=== PATIENT | female | born 1950 | race Caucasian/White ===

== ENCOUNTER 2017-10-08 19:23 | Inpatient (IN) ==
[2017-10-08] MEDS ORDERED: Isovue-370 500 ML INFUS..BTL IV ONE (20:07)
--- NOTE | 2017-10-08 20:24 | Emergency Department Note ---
Disposition Clinical Impression: Diverticulitis Disposition: Admitted As Inpatient Condition: Good Referrals: Samantha Hussein, [employer] [Primary Care Provider] - Forms: ED Satisfaction Letter, Work/School Release Time of Disposition: 22:23 Abdominal Pain HPI - General Chief Complaint: ED Abdominal Pain Stated Complaint: ABD Pain Time Seen by Provider: 10/08/17 19:41 Source: patient, family Mode of arrival: ambulatory Limitations: no limitations Nursing Notes Reviewed: Yes Vital Signs Reviewed: Yes - History of Present Illness HPI Narrative: 67 yo female with chief complaint of "diverticulitis." States this is her third flair in the past few months. Symptoms started August 03, she was seen at [facility] and diagnosed via xray. She was prescribed 10 days of antibiotics and symptoms resolved for 5 days after antibiotic completion. She had symptom recurrence and was prescribed the same antibiotics for another 10 days by her PCP. Her symptoms again resolved for 5 days after completion of antibiotics until today. Today, she has has ~30 episodes of loose stools with stooling every times she urinates today; no blood or black stools, but she has had dark stools. Fever with Tmax 101.7, at which point she felt "bone deep" chills. She has LLQ pelvis pain that radiates to the right. She has nausea, which she has had since initiating the first round of antibiotics - no diarrhea. She has GI referral scheduled for 10/23. Pain Scale: 6 - Related Data Home Medications Medication Instructions Recorded Confirmed Levothyroxine [Synthroid] 50 mcg PO 0630 08/06/15 10/08/17 Pantoprazole Sodium [Protonix] 40 mg PO DAILY 08/06/15 10/08/17 Previous Rx's Medication Instructions Recorded Aspirin 81 mg PO DAILY #30 tab.chew 08/08/15 Atorvastatin [Lipitor] 40 mg PO HS #60 tablet 08/08/15 Lisinopril [Zestril] 2.5 mg PO BID #30 tablet 08/08/15 Metoprolol [Lopressor] 25 mg PO BID #60 tablet 08/08/15 Allergies Allergy/AdvReac Type Severity Reaction Status Date / Time Penicillins Allergy Rash Verified 10/08/17 22:23 Sulfa (Sulfonamide Allergy Rash Verified 10/08/17 22:23 Antibiotics) codeine AdvReac Vomiting Verified 10/08/17 22:23 All systems ED: reviewed and negative except as stated. Review of Systems: As Per HPI Constitutional: Reports: fever, chills Cardiovascular: Denies: chest pain Respiratory: Denies: dyspnea Gastrointestinal: Reports: abdominal pain, nausea, diarrhea. Denies: vomiting Genitourinary: Denies: dysuria Musculoskeletal: Denies: arthralgia, myalgia Neurological: Reports: headache Abdominal Pain PMH - Past Medical History Medical history: Reports: GERD, peripheral artery disease, thyroid disease Female Surgical History: Reports: cholecystectomy, hysterectomy, other Psychiatric history: Reports: no psych history - Social History Smoking status: Current every day smoker Alcohol use: Reports: none Drug use: Reports: none Physical Exam - General Limitations: no limitations General appearance: alert, in no apparent distress - Head Head exam: atraumatic, normocephalic, normal inspection - Eye Eye exam: Present: normal appearance - ENT ENT exam: mucous membranes moist - Neck Neck exam: Present: normal inspection - Chest Chest inspection: Present: normal inspection - Respiratory Respiratory exam: Present: normal lung sounds bilaterally - Cardiovascular Cardiovascular exam: Present: regular rate, normal rhythm, normal heart sounds - Abdominal Exam Abdominal exam: Present: soft, tenderness, normal bowel sounds. Absent: distention, guarding, rebound, rigidity Abdominal tenderness: Present: LLQ - Extremities Exam Extremities exam: Present: normal inspection - Neurological Exam Neurological exam: Present: alert, oriented X3 - Psychiatric Psychiatric exam: Present: normal affect, normal mood - Skin Skin exam: Present: warm, dry, intact, normal color Course Vital Signs Temperature 100.6 F H 10/08/17 19:45 Pulse Rate 97 10/08/17 19:45 Respiratory Rate 20 10/08/17 19:45 Blood Pressure 129/77 10/08/17 19:45 O2 Sat by Pulse Oximetry 93 10/08/17 19:45 Temperature 100.6 F H 10/08/17 19:45 Pulse Rate 97 10/08/17 19:45 Respiratory Rate 20 10/08/17 19:45 Blood Pressure 129/77 10/08/17 19:45 O2 Sat by Pulse Oximetry 93 10/08/17 19:45 Oxygen Delivery Oxygen Delivery Room Air Abdominal Pain - MDM Narrative Medical decision making narrative: 67 yo female presents with recurrent LLQ pain and diarrhea after failing outpatient antibiotics for diverticulitis twice. Outpatient GI appointment scheduled for 10/23. She had fevers with chills today, Tmax 101.7. CT shows diverticulitis. She will be admitted for IV antibiotics. - Differential Diagnosis Differential Diagnosis: Likely: diverticulitis, gastroenteritis - Lab Data Lab results reviewed: Yes I reviewed the patient's lab results. Result diagrams: 10/08/17 20:21 10/08/17 20:21 Lab Results 10/08/17 10/08/17 10/08/17 Range/Units 20:21 20:21 20:50 WBC 13.3 H (4.3-11.1) K/mcL RBC 4.53 (3.82-4.97) M/mcL Hgb 14.5 (11.5-15.4) g/dL Hct 41.9 (35.3-44.9) % MCV 92.5 (83.0-100.0) fL MCH 32.0 (28.0-33.3) pg MCHC 34.6 (31.6-35.5) g/dL RDW 12.4 (11.5-14.5) % Plt Count 299 (140-400) K/mcL MPV 9.9 (9.4-12.4) fL Immature Gran % 0.3 (0-4) % Seg Neutrophils % 81.9 % Lymphocytes % 7.8 % Monocytes % 8.4 % Eosinophils % 1.2 % Basophils % 0.4 % Neutrophils # 10.9 H (1.6-8.9) K/mcL Lymphocytes # 1.0 (0.6-4.6) K/mcL Monocytes # 1.1 (0.0-1.3) K/mcL Eosinophils # 0.2 (0.0-0.6) K/mcL Basophils # 0.1 (0.0-0.2) K/mcL Sodium 133 L (136-145) mEq/L Potassium 4.3 (3.5-5.1) mEq/L Chloride 105 (98-107) mEq/L Carbon Dioxide 22 L (23-29) mEq/L BUN 13 (8-23) mg/dL Creatinine 0.99 (0.60-1.20) mg/dL Est GFR ( Amer) > 60 (> 60) Est GFR (Non-Af Amer) 56 L (> 60) BUN/Creatinine Ratio 13 (6-26) Glucose 126 H (70-105) mg/dL Calculated Osmolality 278 L (280-300) Lactic Acid 0.8 (0.5-2.2) mmol/L Calcium 9.5 (8.6-10.3) mg/dL Total Bilirubin 0.5 (0.3-1.0) mg/dL AST 14 (13-39) Units/L ALT 11 (7-52) Units/L Alkaline Phosphatase 91 (34-104) Units/L Serum Total Protein 7.5 (6.4-8.9) g/dL Albumin 4.1 (3.5-5.7) g/dL Globulin 3.4 (2.4-3.5) g/dL Albumin/Globulin Ratio 1.2 (1.1-2.2) - Radiology Data Radiology results reviewed: Yes I reviewed the patient's radiology results. Attestation Statement - Attestation Attestation: I examined this patient and my medical decision-making was reviewed with the Resident Physician, Dr. Powers. I agree with the documented findings, disposition and treatment plan as described except to the extent set forth below. Patient is a 59-year-old white female who presents to the emergency room today with recurrent left lower quadrant abdominal pain and diarrhea. Patient has been treated 2 times as an outpatient in the past 25 days for diverticulitis. Each time she is been placed on Cipro and Flagyl feels better for 3-5 days and then has a recurrence of her symptoms. Patient last took antibiotics possibly 5 days ago and has been experiencing rapidly worsening left lower quadrant abdominal pain, frequent loose stools and underlying nausea. I agree with patient's physical exam findings as documented. Vital signs are stable. Lab evaluation urinalysis which showed a mild leukocytosis with left shift and CT scan was consistent for acute sigmoid diverticulitis. Patient was started on IV Zosyn due to consecutive outpatient treatment failures. Patient will be admitted to the hospitalist service for further evaluation.
[2017-10-08 20:32] LABS: Basophils # 0.1 K/mcL (0.0-0.2); Basophils % 0.4 %; Eosinophils # 0.2 K/mcL (0.0-0.6); Eosinophils % 1.2 %; Hematocrit 41.9 % (35.3-44.9); Hemoglobin 14.5 g/dL (11.5-15.4); Immature Granulocytes % 0.3 % (0-4); Lymphocytes % 7.8 %; Mean Corpuscular HGB Conc 34.6 g/dL (31.6-35.5); Mean Corpuscular Volume 92.5 fL (83.0-100.0); Mean Platelet Volume 9.9 fL (9.4-12.4); Monocytes # 1.1 K/mcL (0.0-1.3); Monocytes % 8.4 %; Neutrophils # 10.9 K/mcL (1.6-8.9); Platelet Count 299 K/mcL (140-400); Red Blood Count 4.53 M/mcL (3.82-4.97); Red Cell Distribution Width 12.4 % (11.5-14.5); Segmented Neutrophils % 81.9 %
[2017-10-08] MEDS ORDERED: Ondansetron 4 MG/2 ML VIAL IVP ONE (20:35)
[2017-10-08 20:53] LABS: Alanine Aminotransferase 11 Units/L (7-52); Albumin 4.1 g/dL (3.5-5.7); Albumin/Globulin Ratio 1.2 (1.1-2.2); Alkaline Phosphatase 91 Units/L (34-104); Aspartate Amino Transferase 14 Units/L (13-39); BUN/Creatinine Ratio 13 (6-26); Bilirubin,Total 0.5 mg/dL (0.3-1.0); Blood Urea Nitrogen 13 mg/dL (8-23); Calcium 9.5 mg/dL (8.6-10.3); Carbon Dioxide 22 mEq/L (23-29); Chloride 105 mEq/L (98-107); Globulin 3.4 g/dL (2.4-3.5); Glucose 126 mg/dL (70-105); Osmolality,Calculated 278 (280-300); Potassium 4.3 mEq/L (3.5-5.1); Sodium 133 mEq/L (136-145); Total Protein 7.5 g/dL (6.4-8.9); eGFR For Non-African Americans 56 (> 60)
[2017-10-08 23:15] LABS: Bilirubin,Urine Negative (Negative); Blood,Urine Trace (Negative); Clarity,Urine Clear (Clear); Color,Urine Yellow (Yellow); Glucose,Urine (UA) Normal (Normal); Ketones,Urine Negative (Negative); Leukocyte Esterase,Urine Trace (Negative); Nitrite,Urine Negative (Negative); PH,Urine 6.5 pH Units (5.0-8.0); Protein,Urine Negative (Neg-Trace); Specific Gravity,Urine > 1.030 (1.010-1.025); Urobilinogen,Urine Normal (Normal)
[2017-10-08 23:18] LABS: Bacteria,Urine None Seen per hpf (None-Few); Hyaline Casts,Urine None Seen per lpf (None-Few); RBC,Urine 0-3 per hpf (0-3); Squamous Epithelial Cell,Urine None Seen per lpf (None-Few); WBC,Urine 0-3 per hpf (0-3)
[2017-10-09] MEDS ORDERED: Ondansetron 4 MG/2 ML VIAL IVP PRN (00:24)
--- NOTE | 2017-10-09 00:28 | Internal Med History&Physical ---
Date of Encounter: 10/09/17 Time of Encounter: 23:58 Internal Medicine - H&P: HPI Chief complaint: abdominal pain Admitted From: Home Plans for Post Hospital Care: Home History of present illness: Ms. Jiang is a 67 year old female with a history of hypertension, GERD and hypothyroidism who was evaluated 1 month ago at [place] for LLQ abdominal pain and was diagnosed with acute diverticulitis, prescribed antibiotics for 10 days as an outpatient. The symptoms resolved for 5 days after antibiotic completion. She had symptom recurrence and was prescribed the same antibiotics for another 10 days by her PCP. Her symptoms again resolved for 5 days after completion of antibiotics until today. Now she presents complaining of "mushy" stool, LLQ pain but now has chills and fever with a TMax of 101.7F. She denies noticing martine blood in her stool. She also complains of nausea but did not vomit. On arrival to the ER she had a temperature of 100.6F and the rest of her vitals were within normal limits. A CT scan was done which showed acute sigmoid diverticulitis. Of note, she is to see GI as an outpatient on 10/23 for evaluation. Past Med Surg Social Fam HX - Past Medical History Medical history: GERD, peripheral artery disease, thyroid disease Additional medical history: CAROTID STENOSIS. R BREAST CYST. GANGLION CYST. SNIDER'S NEUROMA Psychiatric history: no psych history - Past Surgical History Surgical History: cholecystectomy, hysterectomy Additional surgical history: BILATERAL CARPAL TUNNEL RELEASES. TUBAL LIGATION. BILATERAL 5TH TOES. GANGLION CYST REMOVED. COLONOSCOPY. HEART CATH-NO STENT. LEFT FOOT. CARATOID SURGERY - Social History Smoking Status: Current every day smoker Smokeless Tobacco Status: No Alcohol use: none Drug use: none - Family History Mother Living Status: Hx Family Cardiac Disorders: Yes (CAD) Father Living Status: Hx Family Cardiac Disorders: Yes (A-fib, HTN) Internal Medicine - H&P: Meds Levothyroxine [Synthroid] 50 mcg PO 0630 08/06/15 [History] Pantoprazole Sodium [Protonix] 40 mg PO DAILY 08/06/15 [History] Aspirin 81 mg PO DAILY #30 tab.chew 08/08/15 [Rx] Atorvastatin [Lipitor] 40 mg PO HS #60 tablet 08/08/15 [Rx] Lisinopril [Zestril] 2.5 mg PO BID #30 tablet 08/08/15 [Rx] Metoprolol [Lopressor] 25 mg PO BID #60 tablet 08/08/15 [Rx] 3 Allergy/AdvReac Type Severity Reaction Status Date / Time Penicillins Allergy Rash Verified 10/08/17 22:23 Sulfa (Sulfonamide Allergy Rash Verified 10/08/17 22:23 Antibiotics) codeine AdvReac Vomiting Verified 10/08/17 22:23 All Systems PM: A 10-system review of systems was performed and is negative for pertinent findings except as documented above in the HPI. - Constitutional Vitals: Temp Pulse Resp BP Pulse Ox 100.6 F H 81 14 107/58 97 10/08/17 19:45 10/08/17 23:18 10/08/17 23:18 10/08/17 23:18 10/08/17 23:18 Exam: Vitals: Reviewed General: Well developed female lying comfortably in bed in no acute distress. Skin: Warm and supple. HEENT: Moist mucous membranes. No conjunctivae pallor. Neck: No lymphadenopathy. No JVD. No carotid bruits. No palpable thyroid. Chest: Normal thoracic expansion. Normal breath sounds. Clear to auscultation. Heart: Normal S1 & S2; rhythmic. No rubs or murmurs. Abdomen: Non-distended, soft and moderately tender to palpation in the LLQ. No peritoneal reaction. Extremities: No clubbing, cyanosis or edema. No calf tenderness. Normal distal pulses. Neurological: Awake, alert and oriented to person, place and time. No focal deficits. Psych: Affect appropriate. Internal Med - H&P Results - Labs CBC & Chem 7: 10/08/17 20:21 10/08/17 20:21 - Assessment and plan (1) Diverticulitis Current Visit: Yes Status: Acute Assessment and plan: From the clinical history, this seems to be her 3rd bout of acute diverticulitis or more seemingly could be an extension of the same process but did not receive the adequate duration or has an anatomic defect causing the prolongation of symptoms and therefore warrants GI follow up for a colonoscopy. She is to be seen as an outpatient in 2 weeks. In this acute setting right now a colonoscopy will not be performed therefore we should continue antibiotics to quell the inflammation and she can be prepped for outpatient evaluation. Continue fluids. NPO status and advance diet as tolerated. Monitor for loose stool and diarrhea given her recent antibiotic courses; if this is to be present consideration should be given to rule out C.diff. (2) Sepsis Current Visit: Yes Status: Acute Assessment and plan: Based on the presence of fever and leukocytosis with a known source being her GI tract. Blood cultures were obtained and will continue PipTazo for now and can subsequently be transitioned to an oral regimen. The choice of PipTazp is based on the fact that she recently had 2 courses of a quinolone with metronidazole in the past month but with symptom recurrences in spite of an adequate duration in therapy. Will be placed on continuous fluids as well. Qualifiers: Sepsis type: sepsis due to unspecified organism Qualified Code(s): A41.9 - Sepsis, unspecified organism (3) Hypertension Current Visit: Yes Status: Chronic Assessment and plan: Resume lisinopril and metoprolol. Qualifiers: Hypertension type: essential hypertension Qualified Code(s): I10 - Essential (primary) hypertension (4) Carotid artery disease Current Visit: No Status: Chronic Assessment and plan: Had 95% left carotid occlusion now s/p endarterectomy 5 years ago. Continue ASA and statin daily. Qualifiers: Carotid artery disease type: occlusion Laterality: left Qualified Code(s) : I65.22 - Occlusion and stenosis of left carotid artery (5) DVT prophylaxis Current Visit: Yes Status: Acute Assessment and plan: SubQ heparin ordered. - Time Spent With Patient Total time spent is greater than 50% in coordination of care (as documented) at patient's floor/unit and/or counseling patient: Greater than 35 minutes
[2017-10-09] MEDS: Ringers Solution, Lactated 1,000 ML IVC SCH ×3 (02:01→21:43)
[2017-10-09] MEDS ORDERED: Piperacillin/Tazobactam 3.375 GM in 0.9 % Sodium Chloride Mini Bag 100 ML IVPB SCH ×2 (04:00)
[2017-10-09] MEDS: *HR* Heparin 5,000 UNIT/ML VIAL SQ SCH ×3 (05:48→21:43)
[2017-10-09 05:53] LABS: Basophils % 0.4 %; Eosinophils # 0.2 K/mcL (0.0-0.6); Eosinophils % 1.9 %; Hematocrit 39.5 % (35.3-44.9); Hemoglobin 13.3 g/dL (11.5-15.4); Immature Granulocytes % 0.5 % (0-4); Lymphocytes # 1.3 K/mcL (0.6-4.6); Lymphocytes % 13.3 %; Mean Corpuscular HGB Conc 33.7 g/dL (31.6-35.5); Mean Platelet Volume 10.3 fL (9.4-12.4); Monocytes # 0.8 K/mcL (0.0-1.3); Monocytes % 8.4 %; Neutrophils # 7.4 K/mcL (1.6-8.9); Platelet Count 256 K/mcL (140-400); Red Blood Count 4.16 M/mcL (3.82-4.97); Red Cell Distribution Width 12.6 % (11.5-14.5); Segmented Neutrophils % 75.5 %
[2017-10-09 07:18] LABS: BUN/Creatinine Ratio 12 (6-26); Blood Urea Nitrogen 12 mg/dL (8-23); Calcium 8.7 mg/dL (8.6-10.3); Carbon Dioxide 22 mEq/L (23-29); Chloride 110 mEq/L (98-107); Glucose 103 mg/dL (70-105); Osmolality,Calculated 270 (280-300); Potassium 4.1 mEq/L (3.5-5.1); Sodium 130 mEq/L (136-145); eGFR For Non-African Americans 53 (> 60)
[2017-10-09] MEDS: Aspirin 81 MG TAB.CHEW PO SCH (09:22)
[2017-10-09] MEDS: Piperacillin/Tazobactam 3.375 GM in 0.9 % Sodium Chloride Mini Bag 100 ML IVPB SCH ×2 (09:23→16:01)
--- NOTE | 2017-10-09 10:59 | Internal Med Progress Note ---
Hospitalist Progress Note - Encounter Date of Encounter: 10/09/17 Time of Encounter: 10:59 - Exam Vitals: Temp Pulse Resp BP Pulse Ox 98.5 F 69 16 102/60 95 10/09/17 06:42 10/09/17 06:42 10/09/17 06:42 10/09/17 06:42 10/09/17 06:42 Exam: General: Patient is alert, no acute distress, oriented x 3 Head: atraumatic, normocephalic, Eye: normal appearance, PERRL, no scleral icterus, no conjunctival injection Neck: normal inspection, trachea midline, full ROM, no carotid bruits Chest: normal inspection, symmetric chest rise, CTAB Cardiovascular: Regular rate and rhythm. s1 and s2 No clicks, rubs, gallops, or murmurs. No pedal edema Abdomen: Abdomen is soft, mild LLQ tenderness, no rebound Musculoskeletal: Spontaneously moving all extremities Skin: warm, dry, intact. Neuro: Alert oriented x 3 normal cranial nerves, no focal deficits Psych: Patient's affect is normal - Assessment and Plan (1) Carotid artery disease Current Visit: Yes Status: Chronic Assessment and Plan: Had 95% left carotid occlusion now s/p endarterectomy 5 years ago. Continue ASA and statin daily. (2) Diverticulitis Current Visit: Yes Status: Acute Assessment and Plan: From the clinical history, this seems to be her 3rd bout of acute diverticulitis or more seemingly could be an extension of the same process but did not receive the adequate duration or has an anatomic defect causing the prolongation of symptoms and therefore warrants GI follow up for a colonoscopy. She has an appointment with GI 10/23 Continue fluids, continue Zosyn Advance diet to clears, continue to monitor Monitor for loose stool and diarrhea given her recent antibiotic courses; if this is to be present consideration should be given to rule out C.diff. (3) Sepsis Current Visit: Yes Status: Acute Assessment and Plan: Based on the presence of fever and leukocytosis with a known source being her GI tract. Blood cultures were obtained and will continue PipTazo for now and can subsequently be transitioned to an oral regimen. The choice of PipTazp is based on the fact that she recently had 2 courses of a quinolone with metronidazole in the past month but with symptom recurrences in spite of an adequate duration in therapy. Will be placed on continuous fluids as well. (4) Hypertension Current Visit: Yes Status: Chronic Assessment and Plan: Continue lisinopril and metoprolol. (5) DVT prophylaxis Current Visit: Yes Status: Acute Assessment and Plan: SubQ heparin ordered. - Time Spent with Patient Total time spent is greater than 50% in coordination of care (as documented) at patient's floor/unit and/or counseling patient: Plan of Care Discussed with: patient Internal Medicine: Result - Labs CBC & Chem 7: 10/09/17 05:14 10/09/17 05:14 Labs: Short CBC 10/09/17 Range/Units 05:14 WBC 9.8 (4.3-11.1) K/mcL Hgb 13.3 (11.5-15.4) g/dL Hct 39.5 (35.3-44.9) % Plt Count 256 (140-400) K/mcL Neutrophils # 7.4 (1.6-8.9) K/mcL BMP 10/09/17 05:14 Sodium 130 L Potassium 4.1 Chloride 110 H Carbon Dioxide 22 L BUN 12 Creatinine 1.04 Glucose 103 Calcium 8.7 Consult Discharge Plan - Plan Referrals: Samantha Hussein, H[employer]RAFTER [Primary Care Provider] - (1) Carotid artery disease Qualifiers: Carotid artery disease type: occlusion Laterality: left Qualified Code(s): I65.22 - Occlusion and stenosis of left carotid artery (3) Sepsis Qualifiers: Sepsis type: sepsis due to unspecified organism Qualified Code(s): A41.9 - Sepsis, unspecified organism (4) Hypertension Qualifiers: Hypertension type: essential hypertension Qualified Code(s): I10 - Essential (primary) hypertension
--- NOTE | 2017-10-09 23:51 | Event Note ---
Date of Encounter: 10/09/17 Time of Encounter: 23:32 Notified by pts. nurse of C. diff toxin lab results which were positive for C. diff. Pt. was treated OP w/PO abx x 10 days with sx resolving after 5 days. Sx recurred and prescribed same abx for 10 additional days by PCP. Sx again resolved after 5 days then recurred. Pt. admitted and placed on IVPB Zosyn. IV Zosyn held for now and PO Vancomycin 125 mg QID ordered to start tonight per C. diff tx recommendations. Contact precautions. Pt. to be monitored closely.
[2017-10-10] MEDS: Vancomycin Oral Soln 125 MG/2.5 ML UDC PO SCH ×5 (01:15→21:06)
[2017-10-10] MEDS: Piperacillin/Tazobactam 3.375 GM in 0.9 % Sodium Chloride Mini Bag 100 ML IVPB SCH ×4 (01:16→23:25)
[2017-10-10] MEDS: *HR* Heparin 5,000 UNIT/ML VIAL SQ SCH ×3 (05:32→21:06)
[2017-10-10 06:43] LABS: Basophils % 0.6 %; Eosinophils # 0.3 K/mcL (0.0-0.6); Eosinophils % 3.7 %; Hematocrit 36.7 % (35.3-44.9); Hemoglobin 12.4 g/dL (11.5-15.4); Immature Granulocytes % 0.3 % (0-4); Lymphocytes # 1.5 K/mcL (0.6-4.6); Lymphocytes % 22.7 %; Mean Corpuscular HGB Conc 33.8 g/dL (31.6-35.5); Mean Corpuscular Volume 94.8 fL (83.0-100.0); Mean Platelet Volume 10.4 fL (9.4-12.4); Monocytes # 0.8 K/mcL (0.0-1.3); Monocytes % 11.3 %; Neutrophils # 4.1 K/mcL (1.6-8.9); Platelet Count 236 K/mcL (140-400); Red Blood Count 3.87 M/mcL (3.82-4.97); Red Cell Distribution Width 12.4 % (11.5-14.5); Segmented Neutrophils % 61.4 %
[2017-10-10 07:20] LABS: BUN/Creatinine Ratio 8 (6-26); Blood Urea Nitrogen 7 mg/dL (8-23); Calcium 8.9 mg/dL (8.6-10.3); Carbon Dioxide 25 mEq/L (23-29); Chloride 109 mEq/L (98-107); Glucose 95 mg/dL (70-105); Osmolality,Calculated 286 (280-300); Potassium 3.9 mEq/L (3.5-5.1); Sodium 139 mEq/L (136-145); eGFR For Non-African Americans 60 (> 60)
[2017-10-10] MEDS: Ringers Solution, Lactated 1,000 ML IVC SCH ×3 (10:04→23:25)
[2017-10-10] MEDS: Aspirin 81 MG TAB.CHEW PO SCH (10:05)
--- NOTE | 2017-10-10 10:51 | Internal Med Progress Note ---
Hospitalist Progress Note - Encounter Date of Encounter: 10/10/17 Time of Encounter: 10:51 - Subjective Interval History: 67-year-old female with coronary artery disease, carotid artery disease was admitted and being managed for sepsis secondary to diverticulitis, she has chronic smoldering, diverticulitis as she has had diverticulitis according to her about 5 times in the past 2 months. She also tested positive for C. difficile She has no new complaints She reports abdomen feels bloated. No distention She continues to have diarrhea she is afebrile - Exam Vitals: Temp Pulse Resp BP Pulse Ox 98 F 67 15 149/77 96 10/10/17 10:44 10/10/17 10:44 10/10/17 10:44 10/10/17 10:44 10/10/17 10:44 Exam: General: Patient is alert, no acute distress, oriented x 3 Head: atraumatic, normocephalic, Eye: normal appearance, PERRL, no scleral icterus, no conjunctival injection Neck: normal inspection, trachea midline, full ROM, no carotid bruits Chest: normal inspection, symmetric chest rise, CTAB Cardiovascular: Regular rate and rhythm. s1 and s2 No clicks, rubs, gallops, or murmurs. No pedal edema Abdomen: Abdomen is soft, mild LLQ tenderness, no rebound, no distention Musculoskeletal: Spontaneously moving all extremities Skin: warm, dry, intact. Neuro: Alert oriented x 3 normal cranial nerves, no focal deficits Psych: Patient's affect is rupinder - Assessment and Plan (1) Carotid artery disease Current Visit: Yes Status: Chronic Assessment and Plan: Had 95% left carotid occlusion now s/p endarterectomy 5 years ago. Continue ASA and statin daily. (2) Diverticulitis Current Visit: Yes Status: Acute Assessment and Plan: From the clinical history, this seems to be her 3rd bout of acute diverticulitis or more seemingly could be an extension of the same process but did not receive the adequate duration or has an anatomic defect causing the prolongation of symptoms and therefore warrants GI follow up for a colonoscopy. She has an appointment with GI 10/23 Continue fluids, continue Zosyn-day 2 Advance diet to full liquid Patient also has C. difficile, continue vancomycin orally (3) Sepsis Current Visit: Yes Status: Acute Assessment and Plan: Based on the presence of fever and leukocytosis with a known source being her GI tract on admission. Blood cultures negative Continue Zosyn-Day 2 Advance diet to full liquids (4) Hypertension Current Visit: Yes Status: Chronic Assessment and Plan: Continue lisinopril and metoprolol. (5) DVT prophylaxis Current Visit: Yes Status: Acute Assessment and Plan: SubQ heparin , continue same (6) C. difficile colitis Current Visit: Yes Status: Acute Assessment and Plan: Continue oral vancomycin-day 1 - Time Spent with Patient Total time spent is greater than 50% in coordination of care (as documented) at patient's floor/unit and/or counseling patient: Plan of Care Discussed with: patient Internal Medicine: Result - Labs CBC & Chem 7: 10/10/17 06:01 10/10/17 06:01 Labs: Short CBC 10/10/17 Range/Units 06:01 WBC 6.7 (4.3-11.1) K/mcL Hgb 12.4 (11.5-15.4) g/dL Hct 36.7 (35.3-44.9) % Plt Count 236 (140-400) K/mcL Neutrophils # 4.1 (1.6-8.9) K/mcL BMP 10/10/17 06:01 Sodium 139 Potassium 3.9 Chloride 109 H Carbon Dioxide 25 BUN 7 L Creatinine 0.93 Glucose 95 Calcium 8.9 Consult Discharge Plan - Plan Referrals: Samantha Hussein, DESIGN CHIEF [Primary Care Provider] - (1) Carotid artery disease Qualifiers: Carotid artery disease type: occlusion Laterality: left Qualified Code(s): I65.22 - Occlusion and stenosis of left carotid artery (3) Sepsis Qualifiers: Sepsis type: sepsis due to unspecified organism Qualified Code(s): A41.9 - Sepsis, unspecified organism (4) Hypertension Qualifiers: Hypertension type: essential hypertension Qualified Code(s): I10 - Essential (primary) hypertension
[2017-10-11] MEDS: *HR* Heparin 5,000 UNIT/ML VIAL SQ SCH ×3 (05:25→19:52)
[2017-10-11] MEDS: Piperacillin/Tazobactam 3.375 GM in 0.9 % Sodium Chloride Mini Bag 100 ML IVPB SCH ×2 (09:13→17:25)
[2017-10-11] MEDS: Vancomycin Oral Soln 125 MG/2.5 ML UDC PO SCH ×4 (09:13→19:47)
[2017-10-11] MEDS: Aspirin 81 MG TAB.CHEW PO SCH (09:13)
--- NOTE | 2017-10-11 10:24 | Internal Med Progress Note ---
Hospitalist Progress Note - Encounter Date of Encounter: 10/11/17 Time of Encounter: 10:24 - Subjective Interval History: 67-year-old female with coronary artery disease, carotid artery disease was admitted and being managed for sepsis secondary to diverticulitis, she has chronic smoldering, diverticulitis as she has had diverticulitis according to her about 5 times in the past 2 months. She also tested positive for C. difficile Diarrhea has resolved since last night Diet was advanced this a.m She denies new complains Will likely discharge patient home a.m if she remains stable - Exam Vitals: Temp Pulse Resp BP Pulse Ox 98.0 F 60 14 129/70 95 10/11/17 06:36 10/11/17 06:36 10/11/17 06:36 10/11/17 06:36 10/11/17 06:36 Exam: General: Patient is alert, no acute distress, oriented x 3 Head: atraumatic, normocephalic, Eye: normal appearance, PERRL, no scleral icterus, no conjunctival injection Neck: normal inspection, trachea midline, full ROM, no carotid bruits Chest: normal inspection, symmetric chest rise, CTAB Cardiovascular: Regular rate and rhythm. s1 and s2 No clicks, rubs, gallops, or murmurs. No pedal edema Abdomen: Abdomen is soft, not tender, no rebound, no distention Musculoskeletal: Spontaneously moving all extremities Skin: warm, dry, intact. Neuro: Alert oriented x 3 normal cranial nerves, no focal deficits Psych: Patient's affect is rupinder - Assessment and Plan (1) Carotid artery disease Current Visit: Yes Status: Chronic Assessment and Plan: Had 95% left carotid occlusion now s/p endarterectomy 5 years ago. Continue ASA and statin daily. (2) Diverticulitis Current Visit: Yes Status: Acute Assessment and Plan: From the clinical history, this seems to be her 3rd bout of acute diverticulitis or more seemingly could be an extension of the same process but did not receive the adequate duration or has an anatomic defect causing the prolongation of symptoms and therefore warrants GI follow up for a colonoscopy. She has an appointment with GI 10/23 DisContinue fluids, continue Zosyn-day 3 She is on a regular diet, continue to monitor Patient also has C. difficile, continue vancomycin orally (3) Sepsis Current Visit: Yes Status: Resolved Assessment and Plan: Based on the presence of fever and leukocytosis with a known source being her GI tract on admission. Blood cultures negative Continue Zosyn-Day 3 (4) Hypertension Current Visit: Yes Status: Chronic Assessment and Plan: Continue lisinopril and metoprolol. (5) DVT prophylaxis Current Visit: Yes Status: Acute Assessment and Plan: SubQ heparin , continue same (6) C. difficile colitis Current Visit: Yes Status: Acute Assessment and Plan: Continue oral vancomycin-day 2 - Time Spent with Patient Total time spent is greater than 50% in coordination of care (as documented) at patient's floor/unit and/or counseling patient: Plan of Care Discussed with: patient Internal Medicine: Result - Labs CBC & Chem 7: 10/10/17 06:01 10/10/17 06:01 Consult Discharge Plan - Plan Referrals: Samantha Hussein CNP [Primary Care Provider] - (1) Carotid artery disease Qualifiers: Carotid artery disease type: occlusion Laterality: left Qualified Code(s): I65.22 - Occlusion and stenosis of left carotid artery (3) Sepsis Qualifiers: Sepsis type: sepsis due to unspecified organism Qualified Code(s): A41.9 - Sepsis, unspecified organism (4) Hypertension Qualifiers: Hypertension type: essential hypertension Qualified Code(s): I10 - Essential (primary) hypertension
[2017-10-12] MEDS: Piperacillin/Tazobactam 3.375 GM in 0.9 % Sodium Chloride Mini Bag 100 ML IVPB SCH ×2 (00:37→09:12)
[2017-10-12] MEDS: Ringers Solution, Lactated 1,000 ML IVC SCH (06:12)
[2017-10-12] MEDS: *HR* Heparin 5,000 UNIT/ML VIAL SQ SCH (06:14)
[2017-10-12 06:53] VITALS: BP 145/71
[2017-10-12 08:17] LABS: Basophils # 0.1 K/mcL (0.0-0.2); Basophils % 0.8 %; Eosinophils # 0.4 K/mcL (0.0-0.6); Eosinophils % 5.6 %; Hemoglobin 12.3 g/dL (11.5-15.4); Immature Granulocytes % 0.2 % (0-4); Lymphocytes # 1.6 K/mcL (0.6-4.6); Lymphocytes % 24.6 %; Mean Corpuscular HGB Conc 34.2 g/dL (31.6-35.5); Mean Corpuscular Hemoglobin 31.5 pg (28.0-33.3); Mean Corpuscular Volume 92.1 fL (83.0-100.0); Mean Platelet Volume 10.6 fL (9.4-12.4); Monocytes # 0.5 K/mcL (0.0-1.3); Monocytes % 8.2 %; Platelet Count 252 K/mcL (140-400); Red Blood Count 3.91 M/mcL (3.82-4.97); Red Cell Distribution Width 12.2 % (11.5-14.5); Segmented Neutrophils % 60.6 %
[2017-10-12 08:37] LABS: BUN/Creatinine Ratio 8 (6-26); Blood Urea Nitrogen 8 mg/dL (8-23); Calcium 9.2 mg/dL (8.6-10.3); Carbon Dioxide 26 mEq/L (23-29); Chloride 108 mEq/L (98-107); Glucose 92 mg/dL (70-105); Osmolality,Calculated 290 (280-300); Potassium 3.9 mEq/L (3.5-5.1); Sodium 141 mEq/L (136-145); eGFR For Non-African Americans 53 (> 60)
[2017-10-12] MEDS: Aspirin 81 MG TAB.CHEW PO SCH (09:13)
[2017-10-12] MEDS: Vancomycin Oral Soln 125 MG/2.5 ML UDC PO SCH (09:14)
--- NOTE | 2017-10-12 09:41 | Discharge Summary ---
- NOTES TO OUTPATIENT PROVIDER Notes to Outpatient Provider: Follow up with GI as scheduled, admitted for sepsis secondary to sigmoid diverticulitis and C.diff colitis. Symptoms have resolved, patient is tolerating orally and ambulatory. Discharged home with oral antibiotics Date of Encounter: 10/12/17 Time of Encounter: 09:41 - Discharge Diagnosis (1) Carotid artery disease Priority: Secondary Status: Chronic Qualifiers: Carotid artery disease type: occlusion Laterality: left Qualified Code(s) : I65.22 - Occlusion and stenosis of left carotid artery (2) Diverticulitis Priority: Primary Status: Acute (3) Sepsis Priority: Primary Status: Resolved Qualifiers: Sepsis type: sepsis due to unspecified organism Qualified Code(s): A41.9 - Sepsis, unspecified organism (4) Hypertension Priority: Secondary Status: Chronic Qualifiers: Hypertension type: essential hypertension Qualified Code(s): I10 - Essential (primary) hypertension (5) DVT prophylaxis Priority: Primary Status: Resolved (6) C. difficile colitis Priority: Primary Status: Acute Hospital course: Ms. Jiang is a 67 year old female with CAD,recurrent diverticulitis who was admitted and managed for sepsis secondary to c.diff colitis and sigmoi diverticulitis She was managed with IV and oral antibiotics, IVF hydration She has since made improvement and is ambulatory, tolerating po She is discharged home with oral vanco for 7 more days and augmentin Follow up with GI as earlier scheduled, for out-patient colonoscopy for her recurring diverticulitis Plan of care discussed, verbalized understanding Discharge discussed with: patient, nurse - Time Spent with Patient Total time spent providing and/or coordinating discharge services: Less than 30 minutes - Discharge Medications Prescriptions: Amoxicillin/Clavulanate [Augmentin] 500 mg PO BIDWM #8 tablet Vancomycin Oral Soln [Firvanq] 125 mg PO QID #28 [facility] [place] Home Medications: Levothyroxine [Synthroid] 50 mcg PO 0630 08/06/15 [History] Pantoprazole Sodium [Protonix] 40 mg PO DAILY 08/06/15 [History] Aspirin 81 mg PO DAILY #30 tab.chew 08/08/15 [Rx] Atorvastatin [Lipitor] 40 mg PO HS #60 tablet 08/08/15 [Rx] Lisinopril [Zestril] 2.5 mg PO BID #30 tablet 08/08/15 [Rx] Metoprolol [Lopressor] 25 mg PO BID #60 tablet 08/08/15 [Rx] Amoxicillin/Clavulanate [Augmentin] 500 mg PO BIDWM #8 tablet 10/12/17 [Rx] Vancomycin Oral Soln [Firvanq] 125 mg PO QID #28 [facility] 10/12/17 [Rx] Allergies/Adverse Reactions: 3 Allergy/AdvReac Type Severity Reaction Status Date / Time Penicillins Allergy Rash Verified 10/08/17 22:23 Sulfa (Sulfonamide Allergy Rash Verified 10/08/17 22:23 Antibiotics) codeine AdvReac Vomiting Verified 10/08/17 22:23 Date of admission: 10/09/17 00:21 Primary care physician: Samantha Hussein CNP Discharging clinician: Mj Kruger Anticipated date of discharge: 10/12/17 - Constitutional Vitals: Temp Pulse Resp BP Pulse Ox 98.1 F 55 14 145/71 95 10/12/17 06:52 10/12/17 06:52 10/12/17 06:52 10/12/17 06:52 10/12/17 06:52 General appearance: Present: A&O X 3, pleasant, no acute distress - Head Head exam: Present: atraumatic, normocephalic - Eye Eye exam: Present: PERRL, conjuntiva pink, sclera anicteric Pupils: Present: PERRL - Neck Neck exam general surgery: Present: supple, trachea midline. Absent: lymphadenopathy - Respiratory Respiratory exam: Present: CTAB. Absent: accessory muscle use, rales, rhonchi, wheezes - Cardiovascular Cardiovascular exam: Present: RRR, +S1, +S2. Absent: diastolic murmur, gallop, rubs, systolic murmur - GI/Abdominal GI/Abdominal exam: Present: normal bowel sounds, soft, no peritoneal signs. Absent: distended, tenderness - Extremities Exam Extremities exam: Present: warm, radial pulses palpable and symmetrical. Absent : calf tenderness, cyanotic, pedal edema - Neurological Exam Neurological exam: Present: CN II-XII intact, oriented X3, no focal deficits. Absent: pronater drift, facial droop, speech deficit - Skin Skin exam: Present: dry, intact - Patient Status Disposition: Home, Self-Care Condition: Good Functional capacity at discharge: independent ambulation Overall status at discharge: patient is progressing back to baseline - Discharge Instructions Instructions: Clostridium Difficile Infection (GEN) Follow Up With: Samantha Hussein, FLANGING ROLL OPERATOR [Primary Care Provider] - - Diet and Activity Activity: resume usual activities as tolerated Diet: low salt diet
== END 2017-10-12 11:30 | disposition home or self-care (01) | DRG 872 ==
LOC: 3ANU 19:23 → EMEROOARM 19:23 → SUATTDRO 10-09 00:21 → 3ANU 10-09 00:36
PROVIDERS: ADMIT Internal Medicine; ATTEND Internal Medicine

== ENCOUNTER 2018-09-18 03:51 | Observation (INO) ==
[2018-09-18] MEDS ORDERED: *HR* HYDROmorphone (PF) 1 MG/ML SYRINGE IVP ONE ×2 (04:04→04:40)
--- NOTE | 2018-09-18 04:07 | Emergency Department Note ---
Disposition Clinical Impression: Pain management Calcaneal fracture Qualifiers: Encounter type: initial encounter Calcaneus location: body Fracture type: closed Fracture alignment: displaced Laterality: left Qualified Code(s): S92.012A - Displaced fracture of body of left calcaneus, initial encounter for closed fracture Disposition: Admitted As Inpatient Condition: Fair Time of Disposition: 06:03 Lower Extremity Injury HPI - General Chief Complaint: ED Extremity Injury, Lower Stated Complaint: left ankle injury Time Seen by Provider: 09/18/18 03:54 Source: patient Limitations: no limitations - History of Present Illness HPI Narrative: Patient is a 68-year-old female past medical history of thyroid disease on levothyroxine and high blood pressure presenting to the ED tonight after experiencing a calcaneal fracture after jumping out of the back of a pickup truck today while bailing hay. Patient supposedly landed on her feet hurt a popping sound in her left foot and has been unable to bear weight since. He reports shown from the [facility] ED shows that the patient has a comminuted calcaneal fracture. Patient arrives with a bulky Dominique dressing in place, patient states that the pain is worse than it was when she initially broke the foot. She states she is having some numbness and tingling in her toes but is noted to be neurovascularly intact with capillary refill less than 2 seconds, motor and sensation intact. Patient states she is allergic to penicillin sulfa and codeine. Patient is not noticeably in acute distress due to pain. Patient states she was given a pain medication earlier while at [facility] where she initially had workup and management for this injury. The patient was unable to fill a prescription for her pain medication as all the pharmacies are closed in [place] where she lives. The patient is now presenting here for pain management. Patient has an appointment today with Dr. Kaplan at [facility] for follow-up. - Related Data Home Medications Medication Instructions Recorded Confirmed Levothyroxine [Synthroid] 50 mcg PO 0630 08/06/15 09/17/18 Previous Rx's Medication Instructions Recorded Aspirin 81 mg PO DAILY #30 tab.chew 08/08/15 Atorvastatin [Lipitor] 40 mg PO HS #60 tablet 08/08/15 Lisinopril [Zestril] 2.5 mg PO BID #30 tablet 06/14/16 Metoprolol [Lopressor] 25 mg PO BID #60 tablet 08/08/15 HYDROcodone/Acet 5/325 mg [[place] 1 tab PO Q4H PRN 3 Days #15 tab 09/18/18 5-325 mg] Allergies Allergy/AdvReac Type Severity Reaction Status Date / Time Penicillins Allergy Rash Verified 09/17/18 22:58 Sulfa (Sulfonamide Allergy Rash Verified 09/17/18 22:58 Antibiotics) codeine AdvReac Vomiting Verified 09/17/18 22:58 Review of Systems: *See History of Present Illness for more detail Cardiovascular: Denies: chest pain Respiratory: Denies: dyspnea Gastrointestinal: Denies: abdominal pain, nausea, vomiting Musculoskeletal: Patient admits to left lower extremity pain. Denies: back pain, neck pain Neurological: Denies: headache, weakness, lightheadedness/dizziness, numbness, paresthesias All systems ED: reviewed and negative except as stated. 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 She is otherwise alert and oriented, engaged conversation answering questions appropriately. Neuro: GCS 15, no overt focal neurological deficits Head: Atraumatic, normocephalic Eyes: Pupils equal, round and reactive to light, no scleral icterus, no conjunctival injection Neck: Trachea midline without deviation. Anterior neck is supple without swelling. *Chest: Symmetric chest wall rise *Heart: Cardiac rhythm and rate are regular with S1 and S2 , no S3 or S4 appreciated, no murmurs, gallops, rubs, or clicks. *Lungs: Lungs are clear to auscultation bilaterally, without accessory muscle us e or prolonged expiratory phase. No wheezes, rhonchi or stridor appreciated. Abdomen: Abdomen is flat, soft to palpation, normal bowel sounds. No abdominal bruit auscultated. Non-distended, non-rigid, no organomegaly, no ascites appreciated. No pulsatile mass, no tenderness or guarding to palpation in all four quadrants, no rebound Extremities: Normal capillary refill without evidence of pedal edema, joint swelling or erythema. Pulses/motor/sensory intact in the distal extremity. Psychiatric exam: Patient displays a normal affect and mood for the environment. No overt signs of hallucination. Integumentary: warm, dry, intact, normal color. No rash, cyanosis, diaphoresis, erythema, or pallor - General Limitations: no limitations General appearance: alert, in distress Course Course Narrative: We will start IV at this time and given 1 mg of Dilaudid for the patient's pain. - Reevaluation(s) Reevaluation #1: On reevaluation patient states that the Dilaudid has worn off and she is again in significant pain. I will order a second dose of 1 mg Dilaudid that this time and place orders for continuous cardiac, pulse oximetry and capnography monitoring with every 15 minute blood pressures to be taken. If no relief is given with second dose of Dilaudid we will use of dissociative ketamine for pain control. The patient verbalizes her understanding and agreement with this plan. Time: 04:43 Reevaluation #2: Patient continues to have pain despite 2 mg of Dilaudid. I will give 25 mg of ketamine for sub-dissociative dose at 0.3 mg/kg We will unwrap the patient's ankle at this time to assure proper splint placement. Time: 05:03 Reevaluation #3: The patient is now resting comfortably in the room after ketamine administration. She is alert to verbal stimuli, she is protecting her airway without difficulty. We will continue cardiac monitoring and when necessary oxygen by nasal cannula as well as pulse oximetry and every 15 minute blood pressures. Patient states that she has no concerns or complaints at this time and is agreeable to admission. We will replace Dominique bulky dressing at this time. Time: 05:42 Vital Signs Temperature 97.4 F L 09/18/18 03:54 Pulse Rate 76 09/18/18 03:54 Respiratory Rate 16 09/18/18 03:54 Blood Pressure 122/70 09/18/18 03:54 O2 Sat by Pulse Oximetry 97 09/18/18 03:54 Temperature 97.4 F L 09/18/18 03:54 Pulse Rate 86 09/18/18 05:16 Respiratory Rate 18 09/18/18 05:16 Blood Pressure 154/74 09/18/18 05:16 O2 Sat by Pulse Oximetry 99 09/18/18 05:16 Oxygen Delivery Oxygen Delivery Room Air Extremity Injury, Lower - MDM Narrative Medical decision making narrative: Patient has received some measure of pain control after 2 mg of Dilaudid and 25 mg of ketamine. We have reapplied a Dominique bulky dressing to the patient's left lower extremity in order to protect the calcaneal fracture. Patient will require admission to the hospitalist for pain control with podiatry consult placed for follow-up. The patient her at bedside verbalized their understanding and agreement with this plan and the patient is hemodynamically stable time of admission. Dr. Thorne accepting admission.
--- NOTE | 2018-09-18 04:09 | Emergency Department Note ---
Disposition Clinical Impression: Pain management Calcaneal fracture Qualifiers: Encounter type: initial encounter Calcaneus location: body Fracture type: closed Fracture alignment: displaced Laterality: left Qualified Code(s): S92.012A - Displaced fracture of body of left calcaneus, initial encounter for closed fracture Disposition: Still a Patient Condition: Fair Time of Disposition: 04:09 General Adult HPI - General Chief complaint: ED Extremity Injury, Lower Stated complaint: left ankle injury Time Seen by Provider: 09/18/18 03:54 Source: patient Limitations: no limitations Nursing Notes Reviewed: Yes Vital Signs Reviewed: Yes - History of Present Illness HPI Narrative: Attestation note: Patient was seen with the emergency medicine resident/nurse practitioner/physician music library assistant/transitional resident/medical student: Dr. Michael Gill. I was present for the significant portions of the performance and interpretation of procedures and EKGs. I have personally performed a face to face evaluation on this patient. I have reviewed and agree with history and physical examination patient management and disposition. Briefly: 69 female seen in outside ER after a fall from pickup truck will [facility] headache sustained a calcaneal fracture was given a prescription however where she lives is no pharmacy open pain is actually worse than when she first broke. She states she feels numbness examination shows the patient is moderate distress but neurovascularly intact toes are pink with cap refill less than 2 seconds. Patient got parenteral Dilaudid for pain control and observation. Disposition pending Pain Scale: 10 - Related Data Home Medications Medication Instructions Recorded Confirmed Levothyroxine [Synthroid] 50 mcg PO 0630 08/06/15 09/17/18 Previous Rx's Medication Instructions Recorded Aspirin 81 mg PO DAILY #30 tab.chew 08/08/15 Atorvastatin [Lipitor] 40 mg PO HS #60 tablet 08/08/15 Lisinopril [Zestril] 2.5 mg PO BID #30 tablet 08/08/15 Metoprolol [Lopressor] 25 mg PO BID #60 tablet 08/08/15 HYDROcodone/Acet 5/325 mg [[place] 1 tab PO Q4H PRN 3 Days #15 tab 09/18/18 5-325 mg] Allergies Allergy/AdvReac Type Severity Reaction Status Date / Time Penicillins Allergy Rash Verified 09/17/18 22:58 Sulfa (Sulfonamide Allergy Rash Verified 09/17/18 22:58 Antibiotics) codeine AdvReac Vomiting Verified 09/17/18 22:58 Past Medical History - Past Medical History Medical history: Reports: GERD, peripheral artery disease, thyroid disease Surgical history: Reports: cholecystectomy, hysterectomy Psychiatric history: Reports: no psych history 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 - Social History Smoking Status: Current every day smoker Smokeless Tobacco Status: No Alcohol use: Reports: none Drug use: Reports: none Physical Exam - General Limitations: no limitations General appearance: alert, in no apparent distress Course Vital Signs Temperature 97.4 F L 09/18/18 03:54 Pulse Rate 76 09/18/18 03:54 Respiratory Rate 16 09/18/18 03:54 Blood Pressure 122/70 09/18/18 03:54 O2 Sat by Pulse Oximetry 97 09/18/18 03:54 Temperature 97.4 F L 09/18/18 03:54 Pulse Rate 76 09/18/18 03:54 Respiratory Rate 16 09/18/18 03:54 Blood Pressure 122/70 09/18/18 03:54 O2 Sat by Pulse Oximetry 97 09/18/18 03:54 Oxygen Delivery Oxygen Delivery Room Air
[2018-09-18] MEDS ORDERED: *HR* Ketamine 500 MG/5 ML MDV IVP ONE (05:35)
[2018-09-18] MEDS ORDERED: Naloxone 0.4 MG/ML INJ IVP PRN (06:29)
[2018-09-18] MEDS ORDERED: Ondansetron 4 MG/2 ML VIAL IVP PRN (06:29)
[2018-09-18] MEDS ORDERED: Acetaminophen 325 MG TABLET PO PRN (06:29)
--- NOTE | 2018-09-18 06:44 | Internal Med History&Physical ---
Date of Encounter: 09/18/18 Time of Encounter: 06:35 Internal Medicine - H&P: HPI Chief complaint: intractable heel pain Admitted From: Emergency Dept Plans for Post Hospital Care: Home History of present illness: Ms. Jiang is a 68 year old female who complains of intractable pain in her heel. She fell off a trailer and sustained a calcaneal fracture earlier tonight. She presented to the ER at [place] where she was diagnosed with a calcaneus fracture. She was given a prescription for pain medication and advice to follow up with podiatry today in the clinic. However, it was late in the evening/medical massage therapist and she was unable to find a pharmacy that was open. She therefore came to [facility] ER for intractable pain and was given Dilaudid and Ketamine. She was therefore admitted to hospitalist service for further pain control and podiatry consultation. Upon my assessment of the patient in the ER, patient is quite somnolent and offers very little history due to somnolence. She is maintaining her airway and responding appropriately upon questioning. However, she drifts off to sleep immediately and provides no history other than the fact that she fell off a trailer. Past Med Surg Social Fam HX - Past Medical History Source: old records reviewed Medical history: GERD, peripheral artery disease, thyroid disease Additional medical history: CAROTID STENOSIS. R BREAST CYST. GANGLION CYST. SNIDER'S NEUROMA Psychiatric history: no psych history - Past Surgical History Surgical History: cholecystectomy, hysterectomy Additional surgical history: BILATERAL CARPAL TUNNEL RELEASES. TUBAL LIGATION. BILATERAL 5TH TOES. GANGLION CYST REMOVED. COLONOSCOPY. HEART CATH-NO STENT. LEFT FOOT. CARATOID SURGERY - Social History Smoking Status: Current every day smoker Smokeless Tobacco Status: No Alcohol use: none Drug use: none - Family History Mother Living Status: Hx Family Cardiac Disorders: Yes (CAD) Father Living Status: Hx Family Cardiac Disorders: Yes (A-fib, HTN) Internal Medicine - H&P: Meds Levothyroxine [Synthroid] 50 mcg PO 0630 08/06/15 [History] Aspirin 81 mg PO DAILY #30 tab.chew 08/08/15 [Rx] Atorvastatin [Lipitor] 40 mg PO HS #60 tablet 08/08/15 [Rx] Lisinopril [Zestril] 2.5 mg PO BID #30 tablet 08/08/15 [Rx] Metoprolol [Lopressor] 25 mg PO BID #60 tablet 08/08/15 [Rx] HYDROcodone/Acet 5/325 mg [[place] 5-325 mg] 1 tab PO Q4H PRN 3 Days #15 tab 09/18/18 [Rx] Allergy/AdvReac Type Severity Reaction Status Date / Time Penicillins Allergy Rash Verified 09/17/18 22:58 Sulfa (Sulfonamide Allergy Rash Verified 09/17/18 22:58 Antibiotics) codeine AdvReac Vomiting Verified 09/17/18 22:58 ROS unobtainable: due to mental status (patient very somnolent) - Constitutional Vitals: Temp Pulse Resp BP Pulse Ox 97.4 F L 86 18 154/74 99 09/18/18 03:54 09/18/18 05:16 09/18/18 05:16 09/18/18 05:16 09/18/18 05:16 General appearance: Present: no acute distress Exam: somnolent, protecting airway, responds to vocal commands but drifts off to sleep right away. - Head Head exam: Present: atraumatic, normal inspection - Eye Eye exam: Present: EOMI, PERRL (pupils ~ 2-3 mm and appropriate and equal). Absent: scleral icterus - ENT ENT exam: Present: mucous membranes dry, normal exam, normal oropharynx - Neck Neck exam general surgery: Present: full ROM, supple, trachea midline. Absent: tenderness, nuchal rigidity, thyromegaly - Respiratory Respiratory exam: Present: CTAB. Absent: chest wall tenderness, rales, respiratory distress, rhonchi, wheezes - Cardiovascular Cardiovascular exam: Present: RRR, +S1, +S2. Absent: diastolic murmur, systolic murmur - GI/Abdominal GI/Abdominal exam: Present: normal bowel sounds, soft. Absent: guarding, hepatomegaly, mass, rebound, splenomegaly, tenderness - Extremities Exam Extremities exam: Present: normal capillary refill, tenderness (left heel), warm, radial pulses palpable and symmetrical. Absent: calf tenderness, pedal edema - Back Exam Back exam: Absent: CVA tenderness (L), CVA tenderness (R) - Neurological Exam Neurological exam: Present: no focal deficits, strengths equal and symetr throughout Additional comments: somnolent; arousable, drifts off to sleep right away - Skin Skin exam: Present: dry, intact, warm - Assessment and Plan (1) Calcaneal fracture Current Visit: Yes Status: Acute Assessment and plan: 1. Consult Podiatry -- discussed with Dr. Kaplan. 2. CT foot and ankle ordered per podiatry request. 3. No more pain medication ordered until patient fully awake. 4. Will order Narcan to be available if necessary for opioid reversal. Qualifiers: Encounter type: subsequent encounter Calcaneus location: body Fracture type: closed Fracture alignment: displaced Laterality: left Qualified Code(s): S92.012D - Displaced fracture of body of left calcaneus, subsequent encounter for fracture with routine healing (2) Hypothyroidism Current Visit: Yes Status: Chronic Assessment and plan: 1. Resume home meds once verified. 2. Will order TSH. Qualifiers: Hypothyroidism type: unspecified Qualified Code(s): E03.9 - Hypothyroidism, unspecified (3) Hypertension Current Visit: Yes Status: Chronic Assessment and plan: 1. Monitor BP. 2. Continue home meds once verified and adjust as necessary. Qualifiers: Hypertension type: essential hypertension Qualified Code(s): I10 - Essential (primary) hypertension (4) DVT prophylaxis Current Visit: Yes Status: Resolved Assessment and plan: 1. Heparin SQ.
[2018-09-18 07:19] LABS: Basophils # 0.1 K/mcL (0.0-0.2); Basophils % 0.5 %; Eosinophils % 0.2 %; Hematocrit 40.2 % (35.3-44.9); Hemoglobin 13.4 g/dL (11.5-15.4); Immature Granulocytes % 0.3 % (0-4); Lymphocytes # 0.9 K/mcL (0.6-4.6); Lymphocytes % 9.4 %; Mean Corpuscular HGB Conc 33.3 g/dL (31.6-35.5); Mean Corpuscular Hemoglobin 32.3 pg (28.0-33.3); Mean Corpuscular Volume 96.9 fL (83.0-100.0); Mean Platelet Volume 10.6 fL (9.4-12.4); Monocytes # 0.5 K/mcL (0.0-1.3); Monocytes % 4.8 %; Platelet Count 221 K/mcL (140-400); Red Blood Count 4.15 M/mcL (3.82-4.97); Red Cell Distribution Width 12.4 % (11.5-14.5); Segmented Neutrophils % 84.8 %; White Blood Count 9.5 K/mcL (4.3-11.1)
[2018-09-18 08:24] LABS: INR 1.1
[2018-09-18 08:31] LABS: Albumin 4.1 g/dL (3.5-5.7); Albumin/Globulin Ratio 1.5 (1.1-2.2); Bilirubin,Total 0.4 mg/dL (0.3-1.0); Calcium 9.5 mg/dL (8.6-10.3); Globulin 2.8 g/dL (2.4-3.5); Magnesium 2.2 mg/dL (1.6-2.6); Potassium 4.6 mEq/L (3.5-5.1); Total Protein 6.9 g/dL (6.4-8.9)
[2018-09-18 08:43] LABS: Thyroid Stimulating Hormone 0.74 mcIU/mL (0.340-5.600)
[2018-09-18] MEDS: 0.9 % Sodium Chloride 1,000 ML IVC SCH ×2 (09:28→19:49)
--- NOTE | 2018-09-18 09:32 | Event Note ---
<Deborah,Eric M - Last Filed: 09/18/18 18:57> Date of Encounter: 09/18/18 Time of Encounter: 09:00 Subjective: Patient seen and examined at bedside this morning patient was significantly somnolent and took vigorous shaking to arouse from deep sleep. However, upon her being aroused patient reported 10 out of 10 foot pain and asked for more pain medications. The patient was given ketamine 25 and Dilaudid last night for pain. I have decreased her pain medication regimen to hydrocodone every 6 hours. She continues to complain of severe pain and has declined outpatient surgery for her calcaneal fracture. Podiatry has examined her and agreed to keep the patient over the weekend for surgery on Friday. Patient has no other complaints at this time, no fevers, chills, nausea or chest pain, shortness of breath. Objective: Gen.: Alert and oriented, somnolent HEENT: Oropharynx clear, mucous membranes moist Neck: Soft, supple, no rigidity CV: Regular rate and rhythm, no murmurs gallops rubs, normal S1-S2 Lungs: Mild rhonchi noticed throughout all lung locke bilaterally, no crackles or wheezes appreciated Abdomen: Soft, nontender, nondistended no guarding Extremities: Dressing C/D/I over left foot, neurovascularly intact, capillary refill less than 2 seconds, sensation and strength intact Neuro: No focal neurological deficits A/P: Calcaneal Fracture: -CT foot: Left foot multiplanar fracture, nondisplaced, no compression deformity, also a nondisplaced cuboid fracture -Podiatry has been consulted: Dr. Kaplan to see patient today, already has O/P clinic appt. scheduled -Patient reports 10/10 pain, however was sound asleep upon examination -already received Dilaudid plus 25mg of Ketamine in the ED -Will give tylenol and 5mg Hydrocode for pain control Acute Kidney Injury: -Cont. IVFs -DARRYL on hold -UA pending -If improved tomorrow, restart DARRYL stop fluids Hypertension: -Metoprolol continued -Lisinopril on hold -Cont statin/ASA -BP stable thus far Hypothyroidism: -TSH normal -Restart Levothyroxine DVT Prophylaxis: -Heparin SubQ <Susan Simpson M - Last Filed: 09/18/18 19:25> Date of Encounter: 09/18/18 I examined this patient and my medical decision-making was reviewed with the Resident Physician Dr Cabrera. I agree with the documented findings, disposition and treatment plan as described except to the extent set forth below. Ms Jiang is being observed for calcaneal fracture and intractable pain asleep, comfortable appearing, awakes to name. initailly very comfortable then yelling out stating she needs pain medicaiton now. She denies being drowsy in the ED though she was clearly noted to be, then notes that IV dialudid and ketamine will cause that in anyone. She has an odd affect and throughout conversation appears comfortable. gen- alert, awake,appears stated age eyes- pupils equal round cv- reg rate and rhythm, normal s1,s2, lungs- ctabl, no wheezing, rhonchi or crackles neuro- AAOx3 Calcaneal and cuboid bone fractures- podiatry eval, she refused outpt surgery, will need to be here until friday for or, pt intractable pain- oral pain meds only, low dose narcotic and will up titrate as needed NIDIA- check UA, IVFs
--- NOTE | 2018-09-18 12:50 | Electrocardiograph Report ---
[place] [facility] Test Date: 2018-09-18 Pat Name: Purnima Jiang Department: [id number] Room: [facility] Gender: F [employer] Farm[employer]: : 1950 Requested By: Adam Chan Order Number: [id number] Reading MD: Luis Carlos Maldonado Measurements Intervals [place] Rate: 68 P: 94 IN: 239 QRS: 40 QRSD: 113 T: 47 QT: 411 QTc: 438 Interpretive Statements Sinus rhythm Atrial premature complex Prolonged IN interval Incomplete right bundle branch block Electronically Signed On 09-18-2018 12:48:13 EDT by Luis Carlos Maldonado
[2018-09-18] MEDS: *HR* HYDROcodone/Acet 5/325 mg TABLET PO PRN ×2 (13:13→19:49)
--- NOTE | 2018-09-18 14:44 | Podiatry Consult Note ---
Date of Encounter: 09/18/18 Time of Encounter: 14:43 Assessment and Plan (1) Calcaneal fracture Current visit: Yes Status: Acute Assessment: Left calcaneal fracture No fracture blisters noted Ecchymosis noted to medial and lateral calcaneous CFT <3 seconds Plan: Recommend increasing frequency of pain medication to every 4 hours as patients pain is uncontrolled Posterior splint placed to LLE, see below Discussed with patient need for surgical intervention, patient agreeable, Recommended this be done as an outpatient procedure per Dr. Ta. Patient states her pain is unbearable and she would rather complete surgery while in hospital. Will plan for OR Friday evening, notified patient of plan. Patient agreeable Will plan for OR Friday evening NPO after breakfast Friday Adaptic placed to areas of ecchymosis. Kerlix, posterior splint, cast padding x 3 and DARRYL wraps x 2 placed to LLE Qualifiers: Encounter type: subsequent encounter Calcaneus location: body Fracture type: closed Fracture alignment: displaced Laterality: left Qualified Code(s): S92.012D - Displaced fracture of body of left calcaneus, subsequent encounter for fracture with routine healing History of Present Illness HPI: Ms. Jiang is a 68 year old female who presented to the ER last evening with complaints of pain from left calcaneal fracture. PMH of PAD, thyroid disease, and carotid stenosis. Patient reports smoking 1 PPD, denies illicit drug use, and denies alcohol abuse. Recently, Ms. Jiang is a 68-year-old female who fell while [place] a yesterday. Patient presented to the ER and [place] at which time podiatry was notified and patient was to be seen in office today. Patient was unable to get pain medication due to no pharmacy being open and was having intractable pain so she returned to ER at which time she was admitted. Left foot and ankle CT upon admission showed K calcaneal fracture multiple planes and nondisplaced cuboid fracture. WBC 9.5. Ecchymosis noted to his medial and lateral calcaneous. No fracture blisters noted, no erythema noted, moderate edema noted 2/4. Discussed with patient that this procedure could be done on an outpatient status. Patient reports pain is excruciating and she is unable to have relief and she would like to wait until Friday to have surgery inpatient. No other questions or concerns at this time. Past Med Surg Social Fam HX - Past Medical History Medical history: GERD, peripheral artery disease, thyroid disease Additional medical history: CAROTID STENOSIS. R BREAST CYST. GANGLION CYST. SNIDER'S NEUROMA Psychiatric history: no psych history - Past Surgical History Surgical History: cholecystectomy, hysterectomy Additional surgical history: BILATERAL CARPAL TUNNEL RELEASES. TUBAL LIGATION. BILATERAL 5TH TOES. GANGLION CYST REMOVED. COLONOSCOPY. HEART CATH-NO STENT. LEFT FOOT. CARATOID SURGERY - Social History Smoking Status: Current every day smoker Smokeless Tobacco Status: No Alcohol use: none Drug use: none - Family History Mother Living Status: Hx Family Cardiac Disorders: Yes (CAD) Father Living Status: Hx Family Cardiac Disorders: Yes (A-fib, HTN) Medications and Allergies Aspirin 81 mg PO DAILY #30 tab.chew 08/08/15 [Rx] Lisinopril [Zestril] 2.5 mg PO BID #30 tablet 08/08/15 [Rx] Metoprolol [Lopressor] 25 mg PO BID #60 tablet 08/08/15 [Rx] Atorvastatin [Lipitor] 10 mg PO HS 09/18/18 [History] HYDROcodone/Acet 5/325 mg [[place] 5-325 mg] 1 tab PO Q4H PRN 3 Days #15 tab 09/18/18 [Rx] Levothyroxine Sodium [Levo-T] 25 mcg PO QAM 09/18/18 [History] Allergy/AdvReac Type Severity Reaction Status Date / Time Penicillins Allergy Rash Verified 09/17/18 22:58 Sulfa (Sulfonamide Allergy Rash Verified 09/17/18 22:58 Antibiotics) codeine AdvReac Vomiting Verified 09/17/18 22:58 All Systems Reviewed: The remainder of the systems were reviewed and are negative - Constitutional Constitutional: no fever(s) - Cardiovascular Cardiovascular: pedal edema, no chest pain, no dyspnea, no leg edema, no leg ulcers - Respiratory Respiratory: no dyspnea - Musculoskeletal Musculoskeletal: no numbness, no tingling Physical Exam - Constitutional Vitals: Temp Pulse Resp BP Pulse Ox 97.8 F 64 16 104/46 94 09/18/18 12:13 09/18/18 12:13 09/18/18 12:13 09/18/18 12:13 09/18/18 12:13 Exam: Constitiutional: Alert and oriented x 3. Well nourished. No acute distress noted Vascular: 2/4 DP/PT bilaterally, CFT <3 sec to all digits, warm to warm from tibia to toes bilaterally Neurologic: Sensation to touch, normal plantar response Dermatologic: Skin W/D/I. Ecchymosis noted to medial and lateral calcaneous. No fracture blisters noted. No erythema noted. Moderate edema noted to lateral calcaneous/malleolus area 2/4. Pain upon palpation. Musculoskeletal: 3/5 muscle strength and normal tone bilaterally. Results - Labs Result Diagrams: 09/18/18 06:50 09/18/18 06:50 Labs: Abnormal lab results Sodium 135 mEq/L (136-145) L 09/18/18 06:50 Creatinine 1.28 mg/dL (0.60-1.20) H 09/18/18 06:50 Est GFR ( Amer) 50 (> 60) L 09/18/18 06:50 Est GFR (Non-Af Amer) 41 (> 60) L 09/18/18 06:50 Glucose 143 mg/dL (70-105) H 09/18/18 06:50 H & H 09/18/18 Range/Units 06:50 Hgb 13.4 (11.5-15.4) g/dL Hct 40.2 (35.3-44.9) % All other labs normal. - Diagnostic results Ankle/Foot CT: report reviewed Consult Discharge Plan - Plan Referrals: Samantha Hussein, MACHINERY RIGGER [Primary Care Provider] -
[2018-09-18 15:01] LABS: Bilirubin,Urine Negative (Negative); Blood,Urine Negative (Negative); Clarity,Urine Clear (Clear); Color,Urine Yellow (Yellow); Glucose,Urine (UA) Normal (Normal); Ketones,Urine Negative (Negative); Leukocyte Esterase,Urine Negative (Negative); Nitrite,Urine Negative (Negative); PH,Urine 5.5 pH Units (5.0-8.0); Protein,Urine Negative (Neg-Trace); Urobilinogen,Urine Normal (Normal)
[2018-09-18] MEDS: *HR* Heparin 5,000 UNIT/ML VIAL SQ SCH (17:42)
[2018-09-18] MEDS: Aspirin 81 MG TAB.CHEW PO SCH (19:49)
[2018-09-18] MEDS ORDERED: Acetaminophen IV 500 MG/50 ML INFUS..BTL IVPB ONE (20:48)
[2018-09-19 01:22] LABS: Hematocrit 36.9 % (35.3-44.9); Hemoglobin 12.1 g/dL (11.5-15.4); Mean Corpuscular HGB Conc 32.8 g/dL (31.6-35.5); Mean Corpuscular Hemoglobin 31.3 pg (28.0-33.3); Mean Corpuscular Volume 95.3 fL (83.0-100.0); Mean Platelet Volume 10.5 fL (9.4-12.4); Platelet Count 211 K/mcL (140-400); Red Blood Count 3.87 M/mcL (3.82-4.97); Red Cell Distribution Width 12.6 % (11.5-14.5); White Blood Count 7.8 K/mcL (4.3-11.1)
[2018-09-19 01:40] LABS: Calcium 8.9 mg/dL (8.6-10.3); Potassium 4.2 mEq/L (3.5-5.1)
[2018-09-19] MEDS: *HR* HYDROcodone/Acet 5/325 mg TABLET PO PRN ×3 (01:55→23:48)
[2018-09-19] MEDS: Acetaminophen IV 500 MG/50 ML INFUS..BTL IVPB SCH ×4 (03:31→22:10)
[2018-09-19] MEDS ORDERED: HYDROcodone BIT/Homatropine 5 MG TABLET PO ONE (06:06)
[2018-09-19] MEDS: *HR* Heparin 5,000 UNIT/ML VIAL SQ SCH ×2 (06:28→17:44)
[2018-09-19] MEDS: Levothyroxine 25 MCG TABLET PO SCH (06:31)
--- NOTE | 2018-09-19 08:42 | Internal Med Progress Note ---
<Susan Simpson - Last Filed: 09/19/18 14:30> Hospitalist Progress Note - Encounter Date of Encounter: 09/19/18 - Exam Vitals: Temp Pulse Resp BP Pulse Ox 98.2 F 73 16 126/78 96 09/19/18 10:00 09/19/18 10:00 09/19/18 10:00 09/19/18 10:00 09/19/18 10:00 - Assessment and Plan (1) Hypertension Current Visit: Yes Status: Chronic (2) DVT prophylaxis Current Visit: Yes Status: Resolved (3) Calcaneal fracture Current Visit: Yes Status: Acute (4) Hypothyroidism Current Visit: Yes Status: Chronic - Time Spent with Patient Total time spent is greater than 50% in coordination of care (as documented) at patient's floor/unit and/or counseling patient: Internal Medicine: Result - Labs CBC & Chem 7: 09/19/18 01:11 09/19/18 01:11 Labs: Short CBC 09/19/18 Range/Units 01:11 WBC 7.8 (4.3-11.1) K/mcL Hgb 12.1 (11.5-15.4) g/dL Hct 36.9 (35.3-44.9) % Plt Count 211 (140-400) K/mcL BMP 09/19/18 01:11 Sodium 135 L Potassium 4.2 Chloride 108 H Carbon Dioxide 23 BUN 25 H Creatinine 1.16 Glucose 109 H Calcium 8.9 Urine 09/18/18 Range/Units 14:53 Urine Color Yellow (Yellow) Urine Clarity Clear (Clear) Urine pH 5.5 (5.0-8.0) pH Units Ur Specific [place] 1.020 (1.010-1.025) Urine Protein Negative (Neg-Trace) mg/dL Urine Glucose (UA) Normal (Normal) mg/dL - ABG Interpretation ABG results: PT/INR, D-dimer PT 12.0 Seconds (9.4-12.1) 09/18/18 06:50 Consult Discharge Plan - Plan Referrals: Samantha Hussein, PRINTING ASSISTANT [Primary Care Provider] - - Attending Attestation I examined this patient and my medical decision-making was reviewed with the Resident Physician Dr Hussein. I agree with the documented findings, disposition and treatment plan as described except to the extent set forth below. Ms Jiang is being observed for calcaneal fracture and intractable pain resting comfortably in bed, having occasional intolerable pain, poor sleep, informed of dose change gen- alert, awake,appears stated age cv- reg rate and rhythm, normal s1,s2, lungs- ctabl, no wheezing, rhonchi or crackles, normal resp effort on room air msk- left leg/foot in soft splint neuro- AAOx3 Calcaneal and cuboid bone fractures- podiatry eval,OR friday, pt eval pending intractable pain- oral pain meds only, low dose narcotic, increse freq and monitor NIDIA-resolved <Aditi Hussein - Last Filed: 09/19/18 17:16> Hospitalist Progress Note - Encounter Date of Encounter: 09/19/18 Time of Encounter: 10:45 - Subjective Interval History: Patient seen examined at bedside she is in no acute distress resting comfortably in bed. She did report continued pain in her foot. Her is at the bedside. She has no other complaints. She denied fever, chills, shortness of breath, chest pain. - Exam Vitals: Temp Pulse Resp BP Pulse Ox 98.5 F 68 16 121/76 99 09/19/18 06:35 09/19/18 06:35 09/19/18 06:35 09/19/18 06:35 09/19/18 06:35 Exam: Gen.: Vitals noted. No acute distress. AAOx3 HEENT: oropharynx clear, Normocephalic, atraumatic Cardiac: RRR, no murmur, +S1/S2 Pulmonary: CTA bilaterally, no wheezes, rales or rhonchi, equal chest expansion Abdomen: soft, nontender, Bowel sounds noted, no guarding MSK: left foot bandaged Extremities: no BLE edema, nontender calf, no cyanosis or clubbing Neuro: A&Ox3, moves all extremities, no focal deficits Psych: Appropriate mood and behavior - Assessment and Plan (1) Calcaneal fracture Current Visit: Yes Status: Acute Assessment and Plan: Calcaneal fracture after falling off trailer -ankle and foot CT showing multiplanar left calcaneal fracture involving the posterior margin, posterior subtalar articulation and plantar fascia origin. No compression deformity or displaced intra-articular involvement. Small nondisplaced dorsal cuboid fracture. -Patient reports pain in foot however is tolerable. Plan -podiatry following and plan to take patient to OR on Friday -continue pain management with Oneco 5 mg Q4H, and Tylenol -PT/OT ordered (2) NIDIA (acute kidney injury) Current Visit: Yes Status: Acute Assessment and Plan: Resolved Acute kidney injury. Patient received IV fluids -likely prerenal in setting of hypovolemia -creatinine 1.16 (1.28 at admission) -baseline creatinine 0.9 to 1.0 -urinalysis unremarkable Plan - continue renal protective strategy including renal dose medications and avoid nephrotoxic agents -monitor serum creatinine and urine output (3) Hypothyroidism Current Visit: Yes Status: Chronic Assessment and Plan: History of hyperthyroidism taking levothyroxine -TSH 0.7 -continue her medication (4) Hypertension Current Visit: Yes Status: Chronic Assessment and Plan: History of hypertension taking metoprolol, lisinopril. -Blood pressure controlled -continue metoprolol. -Continue holding lisinopril due to acute kidney injury. Will resume as able (5) DVT prophylaxis Current Visit: Yes Status: Resolved Assessment and Plan: Heparin SQ. - Time Spent with Patient Total time spent is greater than 50% in coordination of care (as documented) at patient's floor/unit and/or counseling patient: Internal Medicine: Result - Labs CBC & Chem 7: 09/19/18 01:11 09/19/18 01:11 Labs: Short CBC 09/19/18 Range/Units 01:11 WBC 7.8 (4.3-11.1) K/mcL Hgb 12.1 (11.5-15.4) g/dL Hct 36.9 (35.3-44.9) % Plt Count 211 (140-400) K/mcL BMP 09/19/18 01:11 Sodium 135 L Potassium 4.2 Chloride 108 H Carbon Dioxide 23 BUN 25 H Creatinine 1.16 Glucose 109 H Calcium 8.9 Urine 09/18/18 Range/Units 14:53 Urine Color Yellow (Yellow) Urine Clarity Clear (Clear) Urine pH 5.5 (5.0-8.0) pH Units Ur Specific [place] 1.020 (1.010-1.025) Urine Protein Negative (Neg-Trace) mg/dL Urine Glucose (UA) Normal (Normal) mg/dL - ABG Interpretation ABG results: PT/INR, D-dimer PT 12.0 Seconds (9.4-12.1) 09/18/18 06:50 <Susan Simpson - Last Filed: 09/19/18 14:30> (1) Hypertension Qualifiers: Hypertension type: essential hypertension Qualified Code(s): I10 - Essential (primary) hypertension (3) Calcaneal fracture Qualifiers: Encounter type: subsequent encounter Calcaneus location: body Fracture type: closed Fracture alignment: displaced Laterality: left Qualified Code(s): S92.012D - Displaced fracture of body of left calcaneus, subsequent encounter for fracture with routine healing (4) Hypothyroidism Qualifiers: Hypothyroidism type: unspecified Qualified Code(s): E03.9 - Hypothyroidism, unspecified <Aditi Hussein - Last Filed: 09/19/18 17:16> (1) Calcaneal fracture Qualifiers: Encounter type: subsequent encounter Calcaneus location: body Fracture type: closed Fracture alignment: displaced Laterality: left Qualified Code(s): S92.012D - Displaced fracture of body of left calcaneus, subsequent encounter for fracture with routine healing (3) Hypothyroidism Qualifiers: Hypothyroidism type: unspecified Qualified Code(s): E03.9 - Hypothyroidism, unspecified (4) Hypertension Qualifiers: Hypertension type: essential hypertension Qualified Code(s): I10 - Essential (primary) hypertension
[2018-09-19] MEDS: Aspirin 81 MG TAB.CHEW PO SCH (09:54)
[2018-09-19] MEDS ORDERED: *HR* HYDROcodone/Acet 5/325 mg TABLET PO ONE (20:00)
[2018-09-19] MEDS: Melatonin 3 MG TABLET PO PRN (20:09)
[2018-09-20] MEDS: Acetaminophen IV 500 MG/50 ML INFUS..BTL IVPB SCH ×4 (03:58→21:55)
[2018-09-20] MEDS: *HR* HYDROcodone/Acet 5/325 mg TABLET PO PRN ×4 (04:00→23:41)
[2018-09-20] MEDS: *HR* Heparin 5,000 UNIT/ML VIAL SQ SCH ×2 (05:52→17:04)
[2018-09-20] MEDS: Levothyroxine 25 MCG TABLET PO SCH (05:52)
[2018-09-20 07:26] LABS: Calcium 9.5 mg/dL (8.6-10.3); Potassium 4.1 mEq/L (3.5-5.1)
--- NOTE | 2018-09-20 08:06 | Internal Med Progress Note ---
<Aditi Hussein - Last Filed: 09/20/18 14:22> Hospitalist Progress Note - Encounter Date of Encounter: 09/20/18 Time of Encounter: 11:00 - Subjective Interval History: Patient seen examined sitting up in chair no acute distress. She reports that she did not sleep very well last night however her foot was not hurting her. She is looking forward to surgery tomorrow. She denied fever, chills, shortness of breath. Her for still hurts her right now but does tolerable. - Exam Vitals: Temp Pulse Resp BP Pulse Ox 98.0 F 64 17 125/68 98 09/20/18 06:44 09/20/18 06:44 09/20/18 06:44 09/20/18 06:44 09/20/18 06:44 Exam: Gen.: Vitals noted. No acute distress. AAOx3 HEENT: oropharynx clear, Normocephalic, atraumatic Cardiac: RRR, no murmur, +S1/S2 Pulmonary: CTA bilaterally, no wheezes, rales or rhonchi, equal chest expansion Abdomen: soft, nontender, Bowel sounds noted, no guarding MSK: left foot bandaged Extremities: no BLE edema, nontender calf, no cyanosis or clubbing Psych: Appropriate mood and behavior - Assessment and Plan (1) Calcaneal fracture Current Visit: Yes Status: Acute Assessment and Plan: Calcaneal fracture after falling off trailer -ankle and foot CT showing multiplanar left calcaneal fracture involving the posterior margin, posterior subtalar articulation and plantar fascia origin. No compression deformity or displaced intra-articular involvement. Small nondisplaced dorsal cuboid fracture. -Patient reports pain in foot however is tolerable. Plan -podiatry following and plan to take patient to OR on Friday. NPO tomorrow after breakfast. -continue pain management with [place] 5 mg Q4H, and Tylenol -PT/OT ordered (2) Hypertension Current Visit: Yes Status: Chronic Assessment and Plan: History of hypertension taking metoprolol, lisinopril. -Blood pressure controlled -continue metoprolol. -Restart home lisinopril as acute kidney injury has resolved (3) DVT prophylaxis Current Visit: Yes Status: Resolved Assessment and Plan: Heparin SQ. (4) Hypothyroidism Current Visit: Yes Status: Chronic Assessment and Plan: History of hyperthyroidism taking levothyroxine -TSH 0.7 -continue her medication - Time Spent with Patient Total time spent is greater than 50% in coordination of care (as documented) at patient's floor/unit and/or counseling patient: Internal Medicine: Result - Labs CBC & Chem 7: 09/19/18 01:11 09/20/18 06:48 Labs: BMP 09/20/18 06:48 Sodium 135 L Potassium 4.1 Chloride 106 Carbon Dioxide 24 BUN 17 Creatinine 1.13 Glucose 100 Calcium 9.5 - ABG Interpretation ABG results: PT/INR, D-dimer PT 12.0 Seconds (9.4-12.1) 09/18/18 06:50 Consult Discharge Plan - Plan Referrals: Samantha Hussein, [employer] [Primary Care Provider] - <Susan Simpson - Last Filed: 09/20/18 19:27> Hospitalist Progress Note - Encounter Date of Encounter: 09/20/18 - Exam Vitals: Temp Pulse Resp BP Pulse Ox 98.5 F 65 16 121/55 95 09/20/18 11:14 09/20/18 11:14 09/20/18 11:14 09/20/18 11:14 09/20/18 11:14 - Assessment and Plan (1) Hypertension Current Visit: Yes Status: Chronic (2) DVT prophylaxis Current Visit: Yes Status: Resolved (3) Calcaneal fracture Current Visit: Yes Status: Acute (4) Hypothyroidism Current Visit: Yes Status: Chronic - Time Spent with Patient Total time spent is greater than 50% in coordination of care (as documented) at patient's floor/unit and/or counseling patient: Internal Medicine: Result - Labs CBC & Chem 7: 09/19/18 01:11 09/20/18 06:48 Labs: BMP 09/20/18 06:48 Sodium 135 L Potassium 4.1 Chloride 106 Carbon Dioxide 24 BUN 17 Creatinine 1.13 Glucose 100 Calcium 9.5 - ABG Interpretation ABG results: PT/INR, D-dimer PT 12.0 Seconds (9.4-12.1) 09/18/18 06:50 - Impressions Impressions Ankle CT 09/18/18 06:38 IMPRESSION: 1. Multiplanar left calcaneal fracture involving the posterior margin, posterior subtalar articulation and plantar fascial origin. No significant compression deformity or displaced intra-articular involvement. 2. Small nondisplaced dorsal cuboid fracture. D/ / 09/18/2018 08:33:51 Nirav Isaac MD / [facility] Interpreting Provider: Nirav Isaac MD Foot CT 09/18/18 06:38 IMPRESSION: 1. Multiplanar left calcaneal fracture involving the posterior margin, posterior subtalar articulation and plantar fascial origin. No significant compression deformity or displaced intra-articular involvement. 2. Small nondisplaced dorsal cuboid fracture. D/ / 09/18/2018 08:33:51 Nirav Isaac MD / [facility] Interpreting Provider: Nirav Isaac MD - Attending Attestation I examined this patient and my medical decision-making was reviewed with the Resident Physician Dr Hussein. I agree with the documented findings, disposition and treatment plan as described except to the extent set forth below. Ms Jiang is being observed for calcaneal fracture and intractable pain resting comfortably in chair, family at bedside, poor sleep but pain better controlled gen- alert, awake,appears stated age cv- reg rate and rhythm, normal s1,s2, lungs- ctabl msk- left leg/foot in soft splint neuro- AAOx3 Calcaneal and cuboid bone fractures- podiatry eval,OR friday evening intractable pain- oral pain meds and increase prn <Denisse Husseine - Last Filed: 09/20/18 14:22> (1) Calcaneal fracture Qualifiers: Encounter type: subsequent encounter Calcaneus location: body Fracture type: closed Fracture alignment: displaced Laterality: left Qualified Code(s): S92.012D - Displaced fracture of body of left calcaneus, subsequent encounter for fracture with routine healing (2) Hypertension Qualifiers: Hypertension type: essential hypertension Qualified Code(s): I10 - Essential (primary) hypertension (4) Hypothyroidism Qualifiers: Hypothyroidism type: unspecified Qualified Code(s): E03.9 - Hypothyroidism, unspecified <Susan Simpson - Last Filed: 09/20/18 19:27> (1) Hypertension Qualifiers: Hypertension type: essential hypertension Qualified Code(s): I10 - Essential (primary) hypertension (3) Calcaneal fracture Qualifiers: Encounter type: subsequent encounter Calcaneus location: body Fracture type: closed Fracture alignment: displaced Laterality: left Qualified Code(s): S92.012D - Displaced fracture of body of left calcaneus, subsequent encounter for fracture with routine healing (4) Hypothyroidism Qualifiers: Hypothyroidism type: unspecified Qualified Code(s): E03.9 - Hypothyroidism, unspecified
[2018-09-20] MEDS: Aspirin 81 MG TAB.CHEW PO SCH (09:40)
[2018-09-20] MEDS: Melatonin 3 MG TABLET PO PRN (23:42)
[2018-09-21] MEDS: *HR* HYDROcodone/Acet 5/325 mg TABLET PO PRN ×3 (04:15→13:19)
[2018-09-21] MEDS: Acetaminophen IV 500 MG/50 ML INFUS..BTL IVPB SCH ×4 (04:52→21:25)
[2018-09-21] MEDS: Levothyroxine 25 MCG TABLET PO SCH (04:52)
[2018-09-21] MEDS: *HR* Heparin 5,000 UNIT/ML VIAL SQ SCH ×2 (05:07→16:23)
[2018-09-21 07:04] LABS: Basophils # 0.1 K/mcL (0.0-0.2); Basophils % 0.6 %; Eosinophils # 0.4 K/mcL (0.0-0.6); Eosinophils % 4.4 %; Immature Granulocytes % 0.5 % (0-4); Lymphocytes # 1.5 K/mcL (0.6-4.6); Lymphocytes % 16.8 %; Mean Corpuscular HGB Conc 33.3 g/dL (31.6-35.5); Mean Corpuscular Hemoglobin 31.7 pg (28.0-33.3); Mean Corpuscular Volume 95.2 fL (83.0-100.0); Mean Platelet Volume 10.4 fL (9.4-12.4); Monocytes # 0.9 K/mcL (0.0-1.3); Platelet Count 201 K/mcL (140-400); Red Blood Count 3.78 M/mcL (3.82-4.97); Red Cell Distribution Width 12.4 % (11.5-14.5); Segmented Neutrophils % 67.7 %; White Blood Count 8.8 K/mcL (4.3-11.1)
[2018-09-21 07:16] LABS: INR 1.1; Prothrombin Time 12.3 Seconds (9.4-12.1)
--- NOTE | 2018-09-21 08:11 | Internal Med Progress Note ---
<Susan Simpson - Last Filed: 09/21/18 15:55> Hospitalist Progress Note - Encounter Date of Encounter: 09/21/18 - Exam Vitals: Temp Pulse Resp BP Pulse Ox 98.3 F 60 15 101/64 97 09/21/18 15:47 09/21/18 15:47 09/21/18 15:47 09/21/18 15:47 09/21/18 15:47 - Assessment and Plan (1) Hypertension Current Visit: Yes Status: Chronic (2) DVT prophylaxis Current Visit: Yes Status: Resolved (3) Calcaneal fracture Current Visit: Yes Status: Acute (4) Hypothyroidism Current Visit: Yes Status: Chronic - Time Spent with Patient Total time spent is greater than 50% in coordination of care (as documented) at patient's floor/unit and/or counseling patient: Internal Medicine: Result - Labs CBC & Chem 7: 09/21/18 06:50 09/20/18 06:48 Labs: Short CBC 09/21/18 Range/Units 06:50 WBC 8.8 (4.3-11.1) K/mcL Hgb 12.0 (11.5-15.4) g/dL Hct 36.0 (35.3-44.9) % Plt Count 201 (140-400) K/mcL Neutrophils # 6.0 (1.6-8.9) K/mcL - ABG Interpretation ABG results: PT/INR, D-dimer PT 12.3 Seconds (9.4-12.1) H 09/21/18 06:50 Consult Discharge Plan - Plan Referrals: Samantha Hussein, [employer] [Primary Care Provider] - - Attending Attestation I examined this patient and my medical decision-making was reviewed with the Resident Physician Dr Feng. I agree with the documented findings, disposition and treatment plan as described except to the extent set forth below. Ms Jiang is being observed for calcaneal fracture and intractable pain resting comfortably in chair, plan is for OR this evening, pain is tolerable with current regimen, sleep is her main concern, no cp, palpitations or sob gen- alert, awake,appears stated age cv- reg rate and rhythm, normal s1,s2, no le edema lungs- ctabl, normal resp effort on ra msk- left leg/foot in soft splint neuro- AAOx3 Calcaneal and cuboid bone fractures- podiatry eval,OR this evening, she refused discharge with outpt surgery as was recommended by podiatry and therefore kept over weekend and added to friday evening schedule intractable pain- oral pain meds and increasing prn, we are NOT giving IV pain meds as she became hypoxic and over sedated in ED with them prompting admission as well as that while she has complaints of pain she is quite comfortable appearing each time she is seen without VS changes suggestive of uncontrolled pain that would warrant IV medication dispo planning- pt eval is pending <Libra Feng - Last Filed: 09/21/18 19:55> Hospitalist Progress Note - Encounter Date of Encounter: 09/21/18 Time of Encounter: 08:11 - Subjective Interval History: Ms. Jiang seen and evaluated at the bedside this morning. She reports ongoing pain in her left heel; however, she states that it is improved with current pain medication regimen. She is currently awaiting operative management later this evening. She denies any new complaints or concerns at this time. Nursing staff reports no acute overnight events. - Exam Vitals: Temp Pulse Resp BP Pulse Ox 98.5 F 58 16 91/46 97 09/21/18 06:40 09/21/18 06:40 09/21/18 06:40 09/21/18 06:40 09/21/18 06:40 Exam: GENERAL: Well-developed, well-nourished adult female in no acute stress. HEENT: Atraumatic and normocephalic. CARDIOVASCULAR: Regular rate and rhythm. S1 and S2 present. No murmurs, gallops, or rubs. RESPIRATORY: Clear to auscultation bilaterally. Chest rises and falls symmetrically without accessory muscle use. EXTREMITIES: No clubbing, cyanosis, or edema. Bandage present on left lower extremity. SKIN: Warm, dry, and intact. NEUROLOGIC: Alert and oriented x3. Patient is cooperative with exam and answers questions appropriately. No apparent focal deficits. PSYCHIATRIC: Appropriate mood and affect. - Assessment and Plan (1) Calcaneal fracture Current Visit: Yes Status: Acute Assessment and Plan: Patient presented with a calcaneal fracture after falling off a trailer. CT of the ankle and foot demonstrated multiplanar left calcaneal fracture involving the posterior margin, posterior subtalar articulation and plantar fascia origin. No compression deformity or displaced intra-articular involvement. Small nondisplaced dorsal cuboid fracture. On evaluation today, patient reports ongoing pain in the left heel, which is currently being managed with opioid pain medications. She is awaiting operative management later this evening. - Continue current pain regimen. - Operative management pending this evening with podiatry. - PT/OT consults placed for evaluation and recommendations. (2) Hypertension Current Visit: Yes Status: Chronic Assessment and Plan: - Continue home medications of metoprolol and lisinopril. (3) Hypothyroidism Current Visit: Yes Status: Chronic Assessment and Plan: - Continue home dose of levothyroxine 25mcg QAM. (4) DVT prophylaxis Current Visit: Yes Status: Resolved Assessment and Plan: - Continue heparin 5000 units SQ Q8H. - Time Spent with Patient Total time spent is greater than 50% in coordination of care (as documented) at patient's floor/unit and/or counseling patient: Internal Medicine: Result - Labs CBC & Chem 7: 09/21/18 06:50 09/20/18 06:48 Labs: Short CBC 09/21/18 Range/Units 06:50 WBC 8.8 (4.3-11.1) K/mcL Hgb 12.0 (11.5-15.4) g/dL Hct 36.0 (35.3-44.9) % Plt Count 201 (140-400) K/mcL Neutrophils # 6.0 (1.6-8.9) K/mcL - ABG Interpretation ABG results: PT/INR, D-dimer PT 12.3 Seconds (9.4-12.1) H 09/21/18 06:50 - Impressions Impressions Ankle CT 09/18/18 06:38 IMPRESSION: 1. Multiplanar left calcaneal fracture involving the posterior margin, posterior subtalar articulation and plantar fascial origin. No significant compression deformity or displaced intra-articular involvement. 2. Small nondisplaced dorsal cuboid fracture. D/ / 09/18/2018 08:33:51 Nirav Isaac MD / [facility] Interpreting Provider: Nirav Isaac MD Foot CT 09/18/18 06:38 IMPRESSION: 1. Multiplanar left calcaneal fracture involving the posterior margin, posterior subtalar articulation and plantar fascial origin. No significant compression deformity or displaced intra-articular involvement. 2. Small nondisplaced dorsal cuboid fracture. D/ / 09/18/2018 08:33:51 Nirav Isaac MD / [facility] Interpreting Provider: Nirav Isaac MD <Susan Simpson - Last Filed: 09/21/18 15:55> (1) Hypertension Qualifiers: Hypertension type: essential hypertension Qualified Code(s): I10 - Essential (primary) hypertension (3) Calcaneal fracture Qualifiers: Encounter type: subsequent encounter Calcaneus location: body Fracture type: closed Fracture alignment: displaced Laterality: left Qualified Code(s): S92.012D - Displaced fracture of body of left calcaneus, subsequent encounter for fracture with routine healing (4) Hypothyroidism Qualifiers: Hypothyroidism type: unspecified Qualified Code(s): E03.9 - Hypothyroidism, unspecified <Libra Feng - Last Filed: 09/21/18 19:55> (1) Calcaneal fracture Qualifiers: Encounter type: subsequent encounter Calcaneus location: body Fracture type: closed Fracture alignment: displaced Laterality: left Qualified Code(s): S92.012D - Displaced fracture of body of left calcaneus, subsequent encounter for fracture with routine healing (2) Hypertension Qualifiers: Hypertension type: essential hypertension Qualified Code(s): I10 - Essential (primary) hypertension (3) Hypothyroidism Qualifiers: Hypothyroidism type: unspecified Qualified Code(s): E03.9 - Hypothyroidism, unspecified
[2018-09-21] MEDS: Aspirin 81 MG TAB.CHEW PO SCH (08:48)
--- NOTE | 2018-09-21 10:22 | Anesthesia Evaluation PreOp ---
Date of Encounter: 09/21/18 Time of Encounter: 10:20 - Past History Planned Operation: LEFT CALCENEAL FRACTURE ORIF Cardiac History: HTN, Other (VERY ACTIVE, EXCELLENT EXCERCISE TOLERANCE) Pulmonary History: Smoker TECHNICAL SUPPORT REPRESENTATIVE History: Denies Any Significant HX Other Medical History: Thyroid Anesthesia History: No Prior Anesthetic Complications, Past Anesthesia Alcohol Use: none Drug use: none Medications and Allergies Aspirin 81 mg PO DAILY #30 tab.chew 08/08/15 [Rx] Lisinopril [Zestril] 2.5 mg PO BID #30 tablet 08/08/15 [Rx] Metoprolol [Lopressor] 25 mg PO BID #60 tablet 08/08/15 [Rx] Atorvastatin [Lipitor] 10 mg PO HS 09/18/18 [History] HYDROcodone/Acet 5/325 mg [[place] 5-325 mg] 1 tab PO Q4H PRN 3 Days #15 tab 09/18/18 [Rx] Levothyroxine Sodium [Levo-T] 25 mcg PO QAM 09/18/18 [History] Allergy/AdvReac Type Severity Reaction Status Date / Time Penicillins Allergy Rash Verified 09/17/18 22:58 Sulfa (Sulfonamide Allergy Rash Verified 09/17/18 22:58 Antibiotics) codeine AdvReac Vomiting Verified 09/17/18 22:58 - Meds/Allergy Pre-op Review Medications Reviewed: Yes Allergies Reviewed: Yes Beta Blockers on Current Med List: No Anesthesia Results - Labs 09/21/18 06:50 09/20/18 06:48 Anesthesia Exam Vital Signs/O2 Sat, Most Current Temp Pulse Resp BP Pulse Ox 97.8 F 62 16 100/60 97 09/21/18 08:15 09/21/18 08:15 09/21/18 08:15 09/21/18 08:15 09/21/18 06:40 Weight: 77 KG - BMI 28 NPO (# of Hours): >0800 - HEENT Mallampati: II Teeth: Normal - Cardiac Rhythm: Regular - Pulmonary Breath Sounds: bilateral Clear Anesthesia Assess/Plan ASA Score: 3 Anesthetic Plan: General, Regional Nerve Block Regional Nerve Block Plan: Adductor canal, Popliteal Monitoring Plan: Standard Monitors Recovery Plan: PACU
[2018-09-21] MEDS ORDERED: *HR* Rocuronium Bromide 50 MG/5 ML VIAL ONE (16:53)
[2018-09-21] MEDS ORDERED: Ondansetron 4 MG/2 ML VIAL ONE (16:53)
[2018-09-21] MEDS ORDERED: *HR* Propofol 200 MG/20 ML VIAL IVP ONE (16:53)
[2018-09-21] MEDS ORDERED: Lidocaine HCL 4 ML Topical Solution (Laryng-O-Jet Kit Sterile Pak) TP ONE (16:53)
[2018-09-21] MEDS ORDERED: *HR* Midazolam HCl 2 MG/2 ML VIAL ONE (16:53)
[2018-09-21] MEDS ORDERED: Lidocaine -MPF 2% 2 ML VIAL ONE (16:53)
[2018-09-21] MEDS ORDERED: *HR* FentaNYL (PF) 100 MCG/2 ML VIAL ONE ×2 (16:53→18:26)
[2018-09-21] MEDS ORDERED: *HR* Succinylcholine 200 MG/10 ML VIAL IVP ONE (16:54)
[2018-09-21] MEDS ORDERED: Ropivacaine/PF 0.5% 30 ML VIAL ONE (16:59)
[2018-09-21] MEDS ORDERED: Clindamycin 900 MG/50 ML 900 MG/50 ML IV.SOLN IVPB ONE ×2 (17:23→17:31)
[2018-09-21] MEDS ORDERED: Dexamethasone 4 MG/ML VIAL ONE (18:01)
[2018-09-21] MEDS ORDERED: EPHEDrine 50 MG/ML VIAL ONE (18:08)
--- NOTE | 2018-09-21 18:24 | Anesthesia Procedures ---
Date of Encounter: 09/21/18 Time of Encounter: 17:20 Procedures: Anesthesia - Nerve Block Procedure Date: 09/21/18 Time: 17:20 Surgical Procedure: left ORIF calceneal fracture Checklist: Correct Patient Identifier, Correct procedure, History checked Correct side: Left Blood Thinner: No Monitor Applied: EKG, BP, Pulse Oximetry Supplemental Oxygen via Nasal Cannula (L/min): 2 Sedation: Versed (mg): 2 Sedation: Fentanyl (mcg): 100 Indication: Post Op Analgesia Block Type: Popliteal, Other (adductor canal) Catheter placed: No Sterile Technique: Yes Ultrasound used: Yes Anatomy identified: Yes Visual spread of Local: Yes Neuro Stimulation: Yes Nerve Stimulator Range: 0.2 - 0.4 mA Blood on Needle Aspiration: No Smooth Injection of Local: Yes Pain with Injection of Local: No Prep: Chlorhexadine Needle: 21 x 100 mm Stimuplex Local: Ropivacaine (0.5% ) Volume (cc): 45 total Number of Attempts: 1 Complications: None/effective block Vitals: Vital Signs/O2 Sat, Most Current Temp Pulse Resp BP Pulse Ox 98.3 F 67 15 132/55 97 09/21/18 15:47 09/21/18 17:37 09/21/18 15:47 09/21/18 17:37 09/21/18 17:37
[2018-09-21] MEDS ORDERED: Bupivacaine/EPI 1:200k 0.5%PF 30 ML VIAL ONE (18:57)
[2018-09-21] MEDS ORDERED: Ketorolac 30 MG/ML VIAL ONE (19:00)
--- NOTE | 2018-09-21 19:28 | Orthopedic Operative Note ---
Date of procedure: 09/21/18 Pre-op diagnosis: left calcaneus fracture Post-op diagnosis: same Procedure: 09/21/18 19:27 1. Open reduction with internal fixation left calcaneus fracture Implants: [employer] 4.5mm cannulated screw x3 Complications: None Anesthesia: GETA, regional Surgeon: Emil Ta Was there an assistant to the director present: No Estimated blood loss (cc): 1 Tourniquet Time (Minutes): 50 Specimen: None Condition: stable Disposition: floor Procedure in Detail: 09/21/18 19:27 INDICATIONS AND CONSENT Purnima Jiang is a 68 year old female who originally presented with left heel pain as a result of an injury jumping off the back of a truck while bailing hay. Radiographs and CT scan indicated a comminuted tongue type calcaneus fracture. The subtalar joint and calcaneal height appeared to be well-preserved. Given the radiographic findings and tenting of the skin at the posterior heel, surgical intervention was warranted. The patient elected to proceed with open reduction with internal fixation of the calcaneus fracture. We discussed the above procedures in detail. This included a discussion on the indications, contraindications, and possible complications including but not limited to: infection, non-healing wound, chronic pain, swelling, bleeding, blood clots, heart complications, nerve injury, tendon injury, vascular injury, loss of limb, loss of life, non-union, malunion, arthritis, hardware failure, and need for further surgery. We also reviewed the expected post operative course, including a discussion on the non-weightbearing status after this procedure. She related understanding of our discussion regarding this surgery. All questions were answered to her satisfaction, and a proper written informed consent was obtained, signed, and placed in the chart. No guarantees were given, stated or implied, as to the outcome of this procedure. PROCEDURE IN DETAIL The patient was seen in the pre-operative holding area by Anesthesia, where she was consented for General Anesthesia with regional popliteal fossa and adductor canal block. The regional nerve blocks were performed under ultrasound guidance by Anesthesia in the pre-operative holding area. The patient was then brought back to the operative suite and placed on the operating room table in a well- padded prone position. A sign-in was performed. General anesthesia was then initiated per Anesthesia protocol. A well-padded pneumatic left thigh tourniquet was then placed. Next, the left lower leg was scrubbed, prepped, and draped in the usual aseptic manner. A Serafina Time-Out was performed, and all parties in the room agreed. Next, an Esmarch was used to exsanguinate the left foot. The pneumatic thigh tourniquet was inflated to 250 mmHg. Attention was then directed to the left posterior ankle where a 4cm linear incision was made lateral to the Achilles tendon. The incision was carried deep to the level of the calcaneus body paying careful attention to retract anatomic structures. A 1cm linear incision was made at the plantar heel as a portal to apply a tenaculum to reduce the fracture. A tenaculum was then applied and the tongue-type fracture was reduced as confirmed under fluoroscopy. Guidewires were then placed for dorsal posterior to plantar anterior across the fractures. Next, three 4.5mm cannulated fully threaded screws were placed using standard AO technique. The guidewires were removed. Adequate reduction of the fractures, maintenance of calcaneus height, and preservation of the subtalar joint was confirmed under fluoroscopy . The wounds were then flushed with copious amounts of normal sterile saline. Next, deep and subcutaneous tissues were re-approximated using 3-0 Vicryl and the skin was re-approximated under minimal tension using 3-0 Nylon. A dry, sterile dressing was then applied, which consisted of: xeroform, 4x4's, Kerlix fluffs, ABDs, and Kerlix roll. The left thigh tourniquet was then deflated, and a proper hyperemic response was noted to the digits on the left foot. Capillary refill time of the toes on the left foot was also noted to be brisk at this time. A well-padded posterior splint was applied with the foot 90 degrees relative to the lower leg. The posterior splint was then secured to the foot and leg using an DARRYL bandage. A sign-out was performed. The patient tolerated anesthesia and the procedure well, and was transferred to PAC-U with vital signs stable and vascular status intact to the left lower extremity. Needle and sponge counts were correct X 2 at the end of the case. Dr. Emil Ta was present, scrubbed, and participated in all vital aspects of the procedure. After a brief stay in PAC-U, the patient will be admitted back to the floor for continued monitoring. She will be discharged with non-weightbearing status tomorrow. All instructions will be provided in "Patient Instructions" at discharge. 09/22/18 05:44
--- NOTE | 2018-09-21 20:05 | Anesthesia Evaluation Post Op ---
Date of Encounter: 09/21/18 Time of Encounter: 20:04 - Vital Signs Vital Signs: Vital Signs/O2 Sat, Most Current Temp Pulse Resp BP Pulse Ox 97.6 F 67 16 116/54 97 09/21/18 19:21 09/21/18 19:41 09/21/18 19:41 09/21/18 19:41 09/21/18 19:41 - Lungs Lungs: Clear Ascult./Percussion - Airway Airway: Non-obstructed - Cardiovascular Regular Rate - Mental Status Mental Status: Alert & Oriented, Answers Appropriately - Pain Pain Scale: 0 Pain Scale used: Numeric (1 - 10) - Nausea Vomiting Nausea Vomiting: Not Present - Hydration Hydration: Ice chips, Has not voided - Discharge PostOp Status: Transfer Patient to floor
[2018-09-21] MEDS ORDERED: *HR* HYDROcodone/Acet 5/325 mg TABLET PO PRN (20:10)
[2018-09-21] MEDS ORDERED: Naloxone 0.4 MG/ML INJ IVP PRN (20:10)
[2018-09-21] MEDS ORDERED: Ondansetron 4 MG/2 ML VIAL IVP PRN (20:10)
[2018-09-21] MEDS ORDERED: Melatonin 3 MG TABLET PO PRN (20:10)
[2018-09-22] MEDS ORDERED: Clindamycin 900 MG/50 ML 900 MG/50 ML IV.SOLN IVPB ONE (02:00)
[2018-09-22] MEDS: Acetaminophen IV 500 MG/50 ML INFUS..BTL IVPB SCH ×2 (04:12→12:52)
[2018-09-22] MEDS ORDERED: *HR* Heparin 5,000 UNIT/ML VIAL SQ SCH (06:00)
[2018-09-22] MEDS ORDERED: Levothyroxine 25 MCG TABLET PO SCH (06:30)
[2018-09-22 07:03] LABS: Basophils % 0.1 %; Hematocrit 33.3 % (35.3-44.9); Immature Granulocytes % 0.4 % (0-4); Lymphocytes # 0.6 K/mcL (0.6-4.6); Lymphocytes % 6.6 %; Mean Corpuscular Hemoglobin 31.4 pg (28.0-33.3); Mean Corpuscular Volume 95.1 fL (83.0-100.0); Mean Platelet Volume 10.7 fL (9.4-12.4); Monocytes # 0.2 K/mcL (0.0-1.3); Monocytes % 2.7 %; Neutrophils # 8.2 K/mcL (1.6-8.9); Platelet Count 207 K/mcL (140-400); Red Cell Distribution Width 12.4 % (11.5-14.5); Segmented Neutrophils % 90.2 %
[2018-09-22 07:23] LABS: BUN/Creatinine Ratio 20 (6-26); Blood Urea Nitrogen 19 mg/dL (8-23); Carbon Dioxide 24 mEq/L (23-29); Chloride 101 mEq/L (98-107); Glucose 156 mg/dL (70-105); Osmolality,Calculated 287 (280-300); Potassium 4.6 mEq/L (3.5-5.1); Sodium 136 mEq/L (136-145); eGFR For African Americans > 60 (> 60); eGFR For Non-African Americans 57 (> 60)
[2018-09-22 08:19] VITALS: BP 92/53
[2018-09-22] MEDS ORDERED: Aspirin 81 MG TAB.CHEW PO SCH (09:00)
--- NOTE | 2018-09-22 11:11 | Discharge Summary ---
<Libra Feng N - Last Filed: 09/22/18 11:15> - NOTES TO OUTPATIENT PROVIDER Notes to Outpatient Provider: Patient was admitted with left calcaneal fracture and underwent operative management on 09/21/2018. Patient is to follow up with podiatry as scheduled. She was provided with 5-days of pain medication with norco 5-325mg Q6H PRN. Date of Encounter: 09/22/18 Time of Encounter: 11:04 - Discharge Diagnosis (1) Calcaneal fracture Priority: Primary Status: Acute Qualifiers: Encounter type: subsequent encounter Calcaneus location: body Fracture type: closed Fracture alignment: displaced Laterality: left Qualified Code(s): S92.012D - Displaced fracture of body of left calcaneus, subsequent encounter for fracture with routine healing (2) Hypertension Priority: Secondary Status: Chronic Qualifiers: Hypertension type: essential hypertension Qualified Code(s): I10 - Essential (primary) hypertension (3) Hypothyroidism Priority: Secondary Status: Chronic Qualifiers: Hypothyroidism type: unspecified Qualified Code(s): E03.9 - Hypothyroidism, unspecified Hospital course: Ms. Jiang is a 68 year old female with a history of hypertension and hypothyroidism who presented with left foot pain after a fall off a trailer. CT of the ankle and foot demonstrated multiplanar left calcaneal fracture involving the posterior margin, posterior subtalar articulation and plantar fascia origin, with no compression deformity or displaced intra-articular involvement. Small nondisplaced dorsal cuboid fracture was also noted. Patient had been evaluated earlier in the day by podiatry, with plans for outpatient surgical management; however, patient returned to the ED due to intractable foot pain. She was admitted over the weekend for pain management. She underwent operative management on 09/21/2018, with significant improvement in foot pain. She was discharged on POD #1 with instructions to remain non-weightbearing, with home p hysical therapy ordered. She is to followup outpatient with podiatry as scheduled. Discharge discussed with: patient - Time Spent with Patient Total time spent providing and/or coordinating discharge services: - Discharge Medications Prescriptions: New HYDROcodone/Acet 5/325 mg [[place] 5-325 mg] 1 tab PO Q6H PRN 5 Days #20 tablet PRN Reason: moderate to severe pain Meloxicam 7.5 mg PO DAILY 30 Days #30 tablet Rivaroxaban [Xarelto] 10 mg PO 1700 21 Days #21 tablet Continued Aspirin 81 mg PO DAILY #30 tab.chew Lisinopril [Zestril] 2.5 mg PO BID #30 tablet Metoprolol [Lopressor] 25 mg PO BID #60 tablet Atorvastatin [Lipitor] 10 mg PO HS Levothyroxine Sodium [Levo-T] 25 mcg PO QAM Discontinued HYDROcodone/Acet 5/325 mg [[place] 5-325 mg] 1 tab PO Q4H PRN 3 Days #15 tab PRN Reason: Pain Home Medications: Aspirin 81 mg PO DAILY #30 tab.chew 08/08/15 [Rx] Lisinopril [Zestril] 2.5 mg PO BID #30 tablet 08/08/15 [Rx] Metoprolol [Lopressor] 25 mg PO BID #60 tablet 08/08/15 [Rx] Atorvastatin [Lipitor] 10 mg PO HS 09/18/18 [History] Levothyroxine Sodium [Levo-T] 25 mcg PO QAM 09/18/18 [History] HYDROcodone/Acet 5/325 mg [[place] 5-325 mg] 1 tab PO Q6H PRN 5 Days #20 tablet 09/22/18 [Rx] Meloxicam 7.5 mg PO DAILY 30 Days #30 tablet 09/22/18 [Rx] Rivaroxaban [Xarelto] 10 mg PO 1700 21 Days #21 tablet 09/22/18 [Rx] Allergies/Adverse Reactions: Allergy/AdvReac Type Severity Reaction Status Date / Time Penicillins Allergy Rash Verified 09/17/18 22:58 Sulfa (Sulfonamide Allergy Rash Verified 09/17/18 22:58 Antibiotics) codeine AdvReac Vomiting Verified 09/17/18 22:58 Date of admission: 09/18/18 06:00 Primary care physician: Samantha Hussein CNP Consults: 09/18/18 05:52 Consult to Podiatry [CONS] Stat Consulting Provider: [facility] Reason for Consult: Comminuted calcaneal fracture Time Notified: 05:52 Call Completed: No 09/18/18 06:32 Consult to Physician [CONS] Routine Consulting Provider: Emil Ta Reason for Consult: calcaneal fracture Call Completed: Yes 09/18/18 13:49 Consult to Occupational Therapy [CONS] Routine Comment: Evaluate, develop and implement POC Reason for Consult: Needs assessment prior to discharge Does patient have active BEDREST order?: No Is patient medically & hemodynamically stable?: Yes Consult to Physical Therapy [CONS] Routine Comment: Evaluate, develop and implement POC Reason for Consult: Needs assesssment prior to discharge Does patient have active BEDREST order?: No Is patient medically & hemodynamically stable?: Yes Discharging clinician: Libra Feng Anticipated date of discharge: 09/22/18 - Constitutional Vitals: Temp Pulse Resp BP Pulse Ox 98.1 F 68 16 92/53 96 09/22/18 08:18 09/22/18 08:18 09/22/18 08:18 09/22/18 08:18 09/22/18 08:18 General appearance: Present: no acute distress Exam: GENERAL: Well-developed, well-nourished adult female in no acute distress. She is sitting comfortably in the bedside recliner. HEENT: Atraumatic and normocephalic. CARDIOVASCULAR: Regular rate and rhythm. S1 and S2 present. No murmurs, gallops, or rubs. RESPIRATORY: Clear to auscultation bilaterally. Chest rises and falls symmetrically without accessory muscle use. GASTROINTESTINAL: Abdomen is soft, nontender, and nondistended. EXTREMITIES: No clubbing, cyanosis, or edema. Bandage present on left lower extremity. SKIN: Warm, dry, and intact. NEUROLOGIC: Alert and oriented x3. Patient is cooperative with exam and answers questions appropriately. No apparent focal deficits. PSYCHIATRIC: Appropriate mood and affect. - Patient Status Disposition: Home, Self-Care Condition: Fair Overall status at discharge: patient is progressing back to baseline - Ambulatory Orders Ambulatory Orders: Misc. Order2 Time Frame: 99 Years, Facility: [facility], Location: Home Health Services Mis. Order3 Time Frame: 99 Years, Facility: [facility], Location: Home Health Services - Discharge Instructions Follow Up With: Emil Ta DPM [Partnered Physician] - Samantha Hussein, TURN SEWER [Primary Care Provider] - Additional Instructions: Continue taking your regular home medications. Take norco 5-325mg every 6 hours as needed for severe pain. Do not take additional [id number] acetaminophen while taking this medication. Follow up with podiatry as scheduled for ongoing post operative care. Remain non-weight bearing with the left lower extremity until instructed otherwise by podiatry. Return to the emergency department or your primary care provider if you develop fevers, chills, chest pain, shortness of breath, severe/radiating pain, or if new concerns arise. - Diet and Activity Activity: as per physical therapy, other (remain non-weightbearing with left lower extremity) Diet: regular diet <Susan Simpson - Last Filed: 09/22/18 18:42> Date of Encounter: 09/22/18 - Discharge Diagnosis (1) Hypertension Status: Chronic Qualifiers: Hypertension type: essential hypertension Qualified Code(s): I10 - Essential (primary) hypertension (2) DVT prophylaxis Status: Resolved (3) Calcaneal fracture Status: Acute Qualifiers: Encounter type: subsequent encounter Calcaneus location: body Fracture type: closed Fracture alignment: displaced Laterality: left Qualified Code(s): S92.012D - Displaced fracture of body of left calcaneus, subsequent encounter for fracture with routine healing (4) Hypothyroidism Status: Chronic Qualifiers: Hypothyroidism type: unspecified Qualified Code(s): E03.9 - Hypothyroidism, unspecified Hospital course: Ms. Jiang is a 68 year old female - Time Spent with Patient Total time spent providing and/or coordinating discharge services: Date of admission: 09/18/18 06:00 Primary care physician: Samantha Hussein CNP Consults: 09/18/18 05:52 Consult to Podiatry [CONS] Stat Consulting Provider: [facility] Reason for Consult: Comminuted calcaneal fracture Time Notified: 05:52 Call Completed: No 09/18/18 06:32 Consult to Physician [CONS] Routine Consulting Provider: Emil Ta Reason for Consult: calcaneal fracture Call Completed: Yes 09/18/18 13:49 Consult to Physical Therapy [CONS] Routine Comment: Evaluate, develop and implement POC Reason for Consult: Needs assesssment prior to discharge Does patient have active BEDREST order?: No Is patient medically & hemodynamically stable?: Yes 09/22/18 11:09 Consult to Security Threat Analyst [CONS] Routine Reason for SW Consult: Home health setup - Constitutional Vitals: Temp Pulse Resp BP Pulse Ox 98.1 F 68 16 92/53 96 09/22/18 08:18 09/22/18 08:18 09/22/18 08:18 09/22/18 08:18 09/22/18 08:18 - Attending Attestation I examined this patient and my medical decision-making was reviewed with the Resident Physician Dr Feng. I agree with the documented findings, disposition and treatment plan as described except to the extent set forth below. Ms Jiang is being observed for calcaneal fracture and intractable pain resting comfortably, happy for dc to home today and has no complaints.eating/drinking/moving bowels. dc plan discussed gen- alert, awake,appears stated age cv- reg rate and rhythm, normal s1,s2 lungs- ctabl, normal resp effort on ra neuro- AAOx3 Calcaneal and cuboid bone fractures-s/p ORIF by podiatry, fu with podiatry outpt as scheduled, Dr Waddell team sending with short term aC with NOAC intractable pain- resolved dc to home time spent on dc 35 min
--- NOTE | 2018-09-22 11:25 | Physician Discharge Referral ---
<JungLibra N - Last Filed: 09/22/18 11:24> Home Health/Hosp Referral Info Transfer to: Home Health Attending Provider: Dr. Susan Simpson Provider in Charge Post Discharge: PCP - Diagnosis (1) Calcaneal fracture Priority: Primary Status: Acute (2) Hypertension Priority: Secondary Status: Chronic (3) Hypothyroidism Priority: Secondary Status: Chronic - Respiratory Orders Smoking Cessation: Smoking cessation has been advised. For more information, call the [place] Tobacco Quit Line at 4-238-EYGT-NOW. - Diet/Nutrition Diet/Nutrition Orders: Regular - Activity Activity Orders: Up ad tristin, Ambulate (Non-weightbearing to left lower extremity) - Services Needed Following services are medically necessary services: Nursing, Home Health Aide, Physical Therapy, Occupational Therapy, Med Social Work - Transfer Medications Prescriptions: Meloxicam 7.5 mg PO DAILY 30 Days #30 tablet HYDROcodone/Acet 5/325 mg [[place] 5-325 mg] 1 tab PO Q6H PRN 5 Days #20 tablet PRN Reason: moderate to severe pain Rivaroxaban [Xarelto] 10 mg PO 1700 21 Days #21 tablet Home Medications: Aspirin 81 mg PO DAILY #30 tab.chew 08/08/15 [Rx] Lisinopril [Zestril] 2.5 mg PO BID #30 tablet 08/08/15 [Rx] Metoprolol [Lopressor] 25 mg PO BID #60 tablet 08/08/15 [Rx] Atorvastatin [Lipitor] 10 mg PO HS 09/18/18 [History] Levothyroxine Sodium [Levo-T] 25 mcg PO QAM 09/18/18 [History] HYDROcodone/Acet 5/325 mg [[place] 5-325 mg] 1 tab PO Q6H PRN 5 Days #20 tablet 09/22/18 [Rx] Meloxicam 7.5 mg PO DAILY 30 Days #30 tablet 09/22/18 [Rx] Rivaroxaban [Xarelto] 10 mg PO 1700 21 Days #21 tablet 09/22/18 [Rx] Allergies/Adverse Reactions: Allergy/AdvReac Type Severity Reaction Status Date / Time Penicillins Allergy Rash Verified 09/17/18 22:58 Sulfa (Sulfonamide Allergy Rash Verified 09/17/18 22:58 Antibiotics) codeine AdvReac Vomiting Verified 09/17/18 22:58 Certification: Further, I certify that my clinical findings support that this patient is homebound (i.e. absences from home require considerable and taxing effort and are for medical reasons or [facility] services or infrequently or short duration when for other reasons) because: Homebound Reason: Post-surgery restriction and or conditions limit ability to leave home Attestation: My signature below is to certify that this patient is under my care and that I, or nurse practitioner, or a physician's administrative sales assistant working with me, has a [id number] encounter with this patient. <Susan Simpson - Last Filed: 09/22/18 13:14> - Diagnosis (1) Hypertension Status: Chronic (2) DVT prophylaxis Status: Resolved (3) Calcaneal fracture Status: Acute (4) Hypothyroidism Status: Chronic - Respiratory Orders None Smoking Cessation: Smoking cessation has been advised. For more information, call the [employer] Tobacco Quit Line at 1-927-KLQF-NOW. - Activity Activity Orders: Ambulate Certification: Further, I certify that my clinical findings support that this patient is homebound (i.e. absences from home require considerable and taxing effort and are for medical reasons or [facility] services or infrequently or short duration when for other reasons) because: Attestation: My signature below is to certify that this patient is under my care and that I, or nurse practitioner, or a physician's administrative sales assistant working with me, has a [id number] encounter with this patient.
--- NOTE | 2018-09-22 13:02 | Podiatry Progress Note ---
Date of Encounter: 09/22/18 Time of Encounter: 11:30 - Assessment and Plan (1) Tobacco abuse Current Visit: No Status: Acute Discussed smoking cessation and increased risk of blood clot as well as delayed healing related to smoking (2) Calcaneal fracture Current Visit: Yes Status: Acute s/p ORIF PLAN: Patient to be discharge today once [facility] set up PT evaluation completed at bedside and recommend home with [facility] Prescription provided for walker and shower chair HHC orders placed per primary team as well as orders for norco Prescription provided for xarelto 10mg. Patient to take daily for 21 days. 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 Please make appointment IN [place] with for 1 week after discharge. please make prior to discharge Qualifiers: Encounter type: subsequent encounter Calcaneus location: body Fracture type: closed Fracture alignment: displaced Laterality: left Qualified Code(s): S92.012D - Displaced fracture of body of left calcaneus, subsequent encounter for fracture with routine healing Subjective Interval history: Patient pod 1 s/p 1. Open reduction with internal fixation left calcaneus fracture. Up to chair. States she has no pain. Had PT evaluation this AM who recommended home with [facility] Objective - Vital Signs Vital Signs: Vital Signs Temp Pulse Resp BP Pulse Ox 09/22/18 08:18 98.1 F 68 16 92/53 96 09/22/18 03:44 97.7 F 62 16 94/52 97 09/21/18 23:46 98 F 65 16 104/69 98 09/21/18 23:10 58 107/70 98 09/21/18 22:11 63 105/68 96 09/21/18 21:28 98.4 F 69 16 108/54 95 09/21/18 20:40 65 115/72 95 09/21/18 20:15 97.6 F 70 16 113/65 96 09/21/18 20:01 98.5 F 67 16 111/50 98 09/21/18 19:51 97.5 F L 65 16 109/50 99 09/21/18 19:41 67 16 116/54 97 09/21/18 19:31 67 16 107/49 100 09/21/18 19:21 97.6 F 70 14 100/46 97 09/21/18 17:37 67 132/55 97 09/21/18 17:22 77 154/58 97 09/21/18 15:47 98.3 F 60 15 101/64 97 Intake and Output 09/21/18 09/22/18 09/22/18 23:59 07:59 15:59 Intake Total 50 / 150 Output Total Balance 49 / 149 Intake: IV Fluids 50 / 150 Ofirmev 1,000 mg/100 ml 500 mg 50 / 150 In 50 ml @ 200 mls/hr IVPB Q6H [facility] Rx#:[id number] Output: Estimated Blood Loss Other: # Voids 1 1 Weight 77.3 kg Patient Weight 09/22/18 23:59 Weight 77.3 kg - Exam Exam: CONSTITUTIONAL: awake , alert and oriented vascular: warm toes, cap refill <3sec, no calf pain with manual squeeze. NEUROLOGICAL: No sensation at this time- block remains intact Surgical: s/p ORIF. Surgial posterior splint intact. No bleeding to dressing noted No areas of skin compromise visible. - Lab Result Diagrams: 09/22/18 06:27 09/22/18 06:27 Labs: Abnormal lab results RBC 3.50 M/mcL (3.82-4.97) L 09/22/18 06:27 Hgb 11.0 g/dL (11.5-15.4) L 09/22/18 06:27 Hct 33.3 % (35.3-44.9) L 09/22/18 06:27 PT 12.3 Seconds (9.4-12.1) H 09/21/18 06:50 Sodium 135 mEq/L (136-145) L 09/20/18 06:48 Chloride 108 mEq/L (98-107) H 09/19/18 01:11 BUN 25 mg/dL (8-23) H 09/19/18 01:11 Creatinine 1.28 mg/dL (0.60-1.20) H 09/18/18 06:50 Est GFR ( Amer) 58 (> 60) L 09/20/18 06:48 Est GFR (Non-Af Amer) 57 (> 60) L 09/22/18 06:27 Glucose 156 mg/dL (70-105) H 09/22/18 06:27 Consult Discharge Plan - Plan Additional Instructions: Continue taking your regular home medications. Take norco 5-325mg every 6 hours as needed for severe pain. Do not take additional vanp-xno-mmayghk acetaminophen while taking this medication. Follow up with podiatry as scheduled for ongoing post operative care. Remain non-weight bearing with the left lower extremity until instructed otherwise by podiatry. Return to the emergency department or your primary care provider if you develop fevers, chills, chest pain, shortness of breath, severe/radiating pain, or if new concerns arise. Referrals: Emil Ta DPM [Partnered Physician] - Samantha Hussein, SHELBI [Primary Care Provider] - Prescriptions: Meloxicam 7.5 mg PO DAILY 30 Days #30 tablet HYDROcodone/Acet 5/325 mg [[place] 5-325 mg] 1 tab PO Q6H PRN 5 Days #20 tablet PRN Reason: moderate to severe pain Rivaroxaban [Xarelto] 10 mg PO 1700 21 Days #21 tablet
== END 2018-09-22 14:25 | disposition home or self-care (01) ==
LOC: 3NENU 03:51 → EMEROOARM 03:51 → SUATTDRO 06:00 → 3NENU 07:45
PROVIDERS: ADMIT Family Medicine; ATTEND Internal Medicine